=== PATIENT | female | born 1930 | race Caucasian/White ===

== ENCOUNTER 2017-05-10 10:17 | Emergency (ER) | payer MEDICARE, MEDICAID ==
[~2017-05-10] VITALS: Ht 152.4 cm; Wt 58.0 kg
[2017-05-10 10:23] VITALS: BP 181/75; PULSE 72; RESP 16; TEMP 98.3; O2SAT 97
[2017-05-10] MEDS ORDERED: PLAV75TA29 PO (10:44)
[2017-05-10] MEDS ORDERED: METF500T PO (10:44)
[2017-05-10] MEDS ORDERED: LANTUS2P SQ (10:44)
[2017-05-10] MEDS ORDERED: GABA800T PO (10:44)
[2017-05-10] MEDS ORDERED: DORZ2SOL EACH EYE (10:44)
[2017-05-10] MEDS ORDERED: CEPH500C PO (10:44)
[2017-05-10] MEDS ORDERED: TRAM50TA PO (10:44)
[2017-05-10] MEDS ORDERED: LOSA100T3 PO (10:44)
[2017-05-10] MEDS ORDERED: TIZA4 PO (10:44)
[2017-05-10] MEDS ORDERED: LEVO50TA4 PO (10:44)
[2017-05-10] MEDS ORDERED: DULO1CAP2 PO (10:44)
[2017-05-10] MEDS ORDERED: FURO1TAB62 PO (10:44)
[2017-05-10] MEDS ORDERED: CARV3.12 PO (10:44)
[2017-05-10] MEDS ORDERED: ATOR10TA15 PO (10:44)
[2017-05-10] MEDS ORDERED: TRIA0.022 TOPICAL (10:44)
[2017-05-10] MEDS ORDERED: LOPE2CAP PO (10:44)
[2017-05-10] MEDS ORDERED: DONE10TA7 PO (10:44)
[2017-05-10] MEDS ORDERED: SODIUM CHLOR 0.9% 1000 ML INJ 1,000 ML IV SCH (10:55)
[2017-05-10] MEDS ORDERED: SODIUM CHLORIDE 0.9% FLUSH 5 ML FLUSH IV FLUSH PRN (11:00)
[2017-05-10 11:05] VITALS: O2SAT 95
--- NOTE | 2017-05-10 11:16 | PD ---
HPI Chief Complaint: Altered Mental Status Time Seen by Provider: 10:51 Travel History International Travel<30 days: No Contact w/Intl Traveler<30days: No Traveled to known affect area: No History of Present Illness HPI The patient is a 87-year-old female who presents to the emergency department via EMS from the intermediate for altered mental status. The patient is a poor historian, is able to tell me her name, but does not know her current location, month, or year. The patient is able to tell me she lives in the [facility]. The patient does have visible ecchymosis and contusions to the right aspect of her face, review of the patient's paperwork from the intermediate does reveal the patient takes dementia type medications. The patient does complain of mild right sided facial pain and neck pain. She denies any chest pain, shortness breath, nausea, vomiting, or abdominal pain. Symptoms are mild to moderate, possibly exacerbated after a recent fall or trauma. However, history is limited secondary to patient's current mental status. PFSH Past Medical History Cardiovascular Problems: Yes Coronary Artery Disease: Yes Dementia: Yes Diabetes: Yes Patient Takes Glucophage: Yes Hypertension: Yes Past Surgical History Surgical History: Unable to Obtain Social History Alcohol Use: No Tobacco Use: No Substance Use: No Allergies-Medications (Allergen,Severity, Reaction): Coded Allergies: No Known Allergies (Unverified , 05/10/17) Reported Meds & Prescriptions Reported Meds & Active Scripts Active Reported Zanaflex (Tizanidine HCl) 4 Mg Tab 4 Mg PO TID Triamcinolone Topical 0.025 % Oint 1 Applic TOPICAL TID Tramadol (Tramadol HCl) 50 Mg Tab 50 Mg PO Q8H PRN Plavix (Clopidogrel Bisulfate) 75 Mg Tab 75 Mg PO DAILY Metformin (Metformin HCl) 500 Mg Tab 1,000 Mg PO BIDPC Losartan-Hydrochlorothiazide 100-12.5 Mg Tab 1 Tab PO DAILY Loperamide (Loperamide HCl) 2 Mg Cap 2 Mg PO DIRECTED PRN One capsule after each loose stool. Not to exceed 8 capsules per day. Levothyroxine (Levothyroxine Sodium) 50 Mcg Tab 50 Mcg PO DAILY Lasix (Furosemide) 20 Mg Tab 20 Mg PO DAILY Lantus Inj (Insulin Glargine) 1,000 Unit/10 Ml Vial 16 Units SQ AC BREAKFAST Gabapentin 800 Mg Tab 800 Mg PO TID Duloxetine DR (Duloxetine HCl) 30 Mg Capdr 30 Mg PO DAILY Dorzolamide Opth Drops (Dorzolamide HCl) 2% Soln 1 Drop EACH EYE BID Donepezil 10 Mg Tab 10 Mg PO HS Cephalexin 500 Mg Cap 500 Mg PO Q6H Carvedilol 3.125 Mg Tab 3.125 Mg PO BID Atorvastatin (Atorvastatin Calcium) 10 Mg Tab 10 Mg PO HS Review of Systems ROS Limitations: Poor Historian Except as stated in HPI: all other systems reviewed are Neg General / Constitutional: No: Fever HENT: Positive: Headaches, Other (right sided facial pain) Cardiovascular: No: Chest Pain or Discomfort Respiratory: No: Shortness of Breath Gastrointestinal: No: Nausea, Vomiting, Abdominal Pain Genitourinary: No: Dysuria Neurologic: Positive: Change in Mentation (per the intermediate) Physical Exam Narrative GENERAL: Awake, alert, pleasant 87-year-old female who appears her stated age and is in no acute respiratory distress. SKIN: Focused skin assessment warm/dry. HEAD: Patient has ecchymosis and swelling of the right facial area and right periorbital area. EYES: Pupils equal and round. Pupils are 3 mm bilateral and reactive. EOMs are intact. Patient is able to see fingers at a both eyes at a distance of 2 feet. ENT: No nasal bleeding or discharge. Mucous membranes pink and moist. No visible blood noted in the posterior oropharynx. NECK: Trachea midline. No JVD. Mild tenderness of the paravertebral muscles. CARDIOVASCULAR: Regular rate and rhythm. No murmur appreciated. RESPIRATORY: No accessory muscle use. Clear to auscultation. Breath sounds equal bilaterally. GASTROINTESTINAL: Abdomen soft, non-tender, nondistended. No rebound tenderness. Back: No obvious step-off over the thoracic or lumbar vertebrae. MUSCULOSKELETAL: No obvious deformities. No clubbing. No cyanosis. No edema. Well-healed scars over the anterior aspect of the knees bilaterally. NEUROLOGICAL: Awake and alert. No obvious cranial nerve deficits. Motor grossly within normal limits. Normal speech. Oriented to person but not place, month, or year. Follows commands easily. PSYCHIATRIC: Appears somewhat demented. Data Data Last Documented VS Vital Signs Date Time Temp Pulse Resp B/P (MAP) Pulse Ox O2 Delivery O2 Flow Rate FiO2 05/10/17 11:05 95 Room Air 05/10/17 10:23 98.3 72 16 181/75 (110) Orders Orders Electrocardiogram (05/10/17 10:55) Complete Blood Count With Diff (05/10/17 10:55) Comprehensive Metabolic Panel (05/10/17 10:55) Creatine Kinase (Cpk) (05/10/17 10:55) Prothrombin Time / Inr (Pt) (05/10/17 10:55) Act Partial Throm Time (Ptt) (05/10/17 10:55) Troponin I (05/10/17 10:55) Thyroid Stimulating Hormone (05/10/17 10:55) Urinalysis - C+S If Indicated (05/10/17 10:55) Chest, Single Ap (05/10/17 10:55) Ct Brain W/O Iv Contrast(Rout) (05/10/17 10:55) Blood Glucose (05/10/17 10:55) Ecg Monitoring (05/10/17 10:55) Iv Access Insert/Monitor (05/10/17 10:55) Oximetry (05/10/17 10:55) Sodium Chloride 0.9% Flush (Ns Flush) (05/10/17 11:00) Sodium Chlor 0.9% 1000 Ml Inj (Ns 1000 M (05/10/17 10:55) Ct Facial Bones W/O Iv Cont (05/10/17 ) Ct Cerv Spine W/O Contrast (05/10/17 ) Labs Laboratory Tests Test 05/10/17 11:00 05/10/17 11:30 05/10/17 11:55 White Blood Count 7.1 TH/MM3 Red Blood Count 4.91 MIL/MM3 Hemoglobin 14.5 GM/DL Hematocrit 44.5 % Mean Corpuscular Volume 90.6 FL Mean Corpuscular Hemoglobin 29.6 PG Mean Corpuscular Hemoglobin Concent 32.7 % Red Cell Distribution Width 14.9 % Platelet Count 279 TH/MM3 Mean Platelet Volume 9.3 FL Neutrophils (%) (Auto) 71.8 % Lymphocytes (%) (Auto) 18.3 % Monocytes (%) (Auto) 7.1 % Eosinophils (%) (Auto) 1.9 % Basophils (%) (Auto) 0.9 % Neutrophils # (Auto) 5.1 TH/MM3 Lymphocytes # (Auto) 1.3 TH/MM3 Monocytes # (Auto) 0.5 TH/MM3 Eosinophils # (Auto) 0.1 TH/MM3 Basophils # (Auto) 0.1 TH/MM3 CBC Comment AUTO DIFF Differential Comment AUTO DIFF CONFIRMED Prothrombin Time 11.5 SEC Prothromb Time International Ratio 1.0 RATIO Activated Partial Thromboplast Time 26.2 SEC Blood Urea Nitrogen 17 MG/DL Creatinine 0.99 MG/DL Random Glucose 198 MG/DL Total Protein 7.7 GM/DL Albumin 3.1 GM/DL Calcium Level 8.5 MG/DL Alkaline Phosphatase 115 U/L Aspartate Amino Transf (AST/SGOT) 36 U/L Alanine Aminotransferase (ALT/SGPT) 20 U/L Total Bilirubin 0.5 MG/DL Sodium Level 136 MEQ/L Potassium Level 3.2 MEQ/L Chloride Level 93 MEQ/L Carbon Dioxide Level 35.5 MEQ/L Anion Gap 8 MEQ/L Estimat Glomerular Filtration Rate 53 ML/MIN Total Creatine Kinase 66 U/L Troponin I 0.04 NG/ML Thyroid Stimulating Hormone 3rd Gen 0.881 uIU/ML Urine Color YELLOW Urine Turbidity CLEAR Urine pH 6.5 Urine Specific Carnegie 1.019 Urine Protein 30 mg/dL Urine Glucose (UA) TRACE mg/dL Urine Ketones 10 mg/dL Urine Occult Blood NEG Urine Nitrite NEG Urine Bilirubin NEG Urine Urobilinogen 2.0 MG/DL Urine Leukocyte Esterase TRACE Urine RBC 1 /hpf Urine WBC 3 /hpf Urine Squamous Epithelial Cells 2 /hpf Urine Transitional Epithelial Cells <1 /hpf Urine Hyaline Casts 13 /lpf Urine Mucus FEW /lpf Microscopic Urinalysis Comment CATH-CULT NOT IND MDM Medical Decision Making Medical Screen Exam Complete: Yes Emergency Medical Condition: Yes Medical Record Reviewed: Yes Interpretation(s) EKG reveals normal sinus rhythm with a rate of 69. Nonspecific ST and T-wave changes. CT of the brain is negative CT facial bones reveals small retention cyst in the posterior left ethmoid air cell and inferior medially in the left maxillary antra. Otherwise negative. No fracture. Laboratory Tests Test 05/10/17 11:00 05/10/17 11:30 05/10/17 11:55 White Blood Count 7.1 TH/MM3 Red Blood Count 4.91 MIL/MM3 Hemoglobin 14.5 GM/DL Hematocrit 44.5 % Mean Corpuscular Volume 90.6 FL Mean Corpuscular Hemoglobin 29.6 PG Mean Corpuscular Hemoglobin Concent 32.7 % Red Cell Distribution Width 14.9 % Platelet Count 279 TH/MM3 Mean Platelet Volume 9.3 FL Neutrophils (%) (Auto) 71.8 % Lymphocytes (%) (Auto) 18.3 % Monocytes (%) (Auto) 7.1 % Eosinophils (%) (Auto) 1.9 % Basophils (%) (Auto) 0.9 % Neutrophils # (Auto) 5.1 TH/MM3 Lymphocytes # (Auto) 1.3 TH/MM3 Monocytes # (Auto) 0.5 TH/MM3 Eosinophils # (Auto) 0.1 TH/MM3 Basophils # (Auto) 0.1 TH/MM3 CBC Comment AUTO DIFF Differential Comment AUTO DIFF CONFIRMED Prothrombin Time 11.5 SEC Prothromb Time International Ratio 1.0 RATIO Activated Partial Thromboplast Time 26.2 SEC Blood Urea Nitrogen 17 MG/DL Creatinine 0.99 MG/DL Random Glucose 198 MG/DL Total Protein 7.7 GM/DL Albumin 3.1 GM/DL Calcium Level 8.5 MG/DL Alkaline Phosphatase 115 U/L Aspartate Amino Transf (AST/SGOT) 36 U/L Alanine Aminotransferase (ALT/SGPT) 20 U/L Total Bilirubin 0.5 MG/DL Sodium Level 136 MEQ/L Potassium Level 3.2 MEQ/L Chloride Level 93 MEQ/L Carbon Dioxide Level 35.5 MEQ/L Anion Gap 8 MEQ/L Estimat Glomerular Filtration Rate 53 ML/MIN Total Creatine Kinase 66 U/L Troponin I 0.04 NG/ML Thyroid Stimulating Hormone 3rd Gen 0.881 uIU/ML Urine Color YELLOW Urine Turbidity CLEAR Urine pH 6.5 Urine Specific Carnegie 1.019 Urine Protein 30 mg/dL Urine Glucose (UA) TRACE mg/dL Urine Ketones 10 mg/dL Urine Occult Blood NEG Urine Nitrite NEG Urine Bilirubin NEG Urine Urobilinogen 2.0 MG/DL Urine Leukocyte Esterase TRACE Urine RBC 1 /hpf Urine WBC 3 /hpf Urine Squamous Epithelial Cells 2 /hpf Urine Transitional Epithelial Cells <1 /hpf Urine Hyaline Casts 13 /lpf Urine Mucus FEW /lpf Microscopic Urinalysis Comment CATH-CULT NOT IND Last Impressions Head CT 05/10/17 1055 Signed Impressions: Service Date/Time: Wednesday, May 10, 2017 12:33 - CONCLUSION: 1. No acute hemorrhage, mass or infarction. 2. Atrophy and chronic small vessel ischemic changes. Zander Gu MD Chest X-Ray 05/10/17 1055 Signed Impressions: Service Date/Time: Wednesday, May 10, 2017 11:15 - CONCLUSION: No acute cardiopulmonary process. Marvin Martel MD CT cervical spine reveals no fracture or dislocation. Multilevel degenerative changes. Calcified plaque involving the carotid arteries. Calcified granuloma left upper lobe. Differential Diagnosis Differential diagnosis includes intracranial hemorrhage, subarachnoid hemorrhage , subdural hemorrhage, facial fracture, cervical fracture, hyponatremia, dehydration, UTI, delirium, dementia. Narrative Course IV was established, labs are drawn and sent, and the patient was placed on cardiac telemetry monitoring and continuous pulse oximetry monitoring. CT of the brain, facial bones, and cervical spine were ordered. UA was sent to lab. Chest x-ray was obtained. Chest x-rays unremarkable. Laboratory evaluation is unremarkable. CT the brain is unremarkable, no acute hemorrhage. CT the facial bones reveals no fracture. Diagnosis Primary Impression: Altered mental status Qualified Codes: R41.82 - Altered mental status, unspecified Additional Impression: Facial contusion Qualified Codes: S00.83XA - Contusion of other part of head, initial encounter Patient Instructions: General Instructions Additional Instructions: Please provide the intermediate a copy of her lab results and CT results at discharge. Ice to the right face as needed. Follow-up with your primary physician. Return if symptoms worsen or progress. Disposition: 70 TRANSFER TO OTHER FACILITY (transfer back to intermediate) Condition: Stable Cesar Calderon MD May 10, 2017 11:16
[2017-05-10 11:41] LABS: AUTOMATED NEUTROPHIL # 5.1 TH/MM3 (1.8-7.7); BASOPHIL # 0.1 TH/MM3 (0-0.2); BASOPHIL % 0.9 % (0.0-2.0); EOSINOPHIL # 0.1 TH/MM3 (0-0.4); EOSINOPHIL % 1.9 % (0.0-4.0); HEMATOCRIT 44.5 % (35.0-46.0); HEMOGLOBIN 14.5 GM/DL (11.6-15.3); LYMPH % 18.3 % (9.0-44.0); LYMPHOCYTE # 1.3 TH/MM3 (1.0-4.8); MEAN CELL VOLUME 90.6 FL (80.0-100.0); MEAN CORPUSCULAR HEMOGLOBIN 29.6 PG (27.0-34.0); MEAN CORPUSCULAR HGB CONC 32.7 % (32.0-36.0); MEAN PLATELET VOLUME 9.3 FL (7.0-11.0); MONO % 7.1 % (0.0-8.0); MONOCYTE # 0.5 TH/MM3 (0-0.9); NEUT % 71.8 % (16.0-70.0); PLATELET COUNT 279 TH/MM3 (150-450); RED BLOOD COUNT 4.91 MIL/MM3 (4.00-5.30); RED CELL DISTRIBUTION WIDTH 14.9 % (11.6-17.2); WHITE BLOOD COUNT 7.1 TH/MM3 (4.0-11.0)
--- NOTE | 2017-05-10 11:44 | RADRPT ---
EXAM DATE/TIME: 05/10/2017 11:15 [facility] COMPARISON: No previous studies available for comparison. INDICATIONS : Shortness of breath. MEDICAL HISTORY : Hypertension. Diabetes mellitus type II. Coronary artery disease SURGICAL HISTORY : CABG. ENCOUNTER: Initial ACUITY: 1 day PAIN SCORE: Non-responsive. LOCATION: Bilateral chest FINDINGS: A single view of the chest demonstrates the lungs to be symmetrically aerated without evidence of mas s, infiltrate or effusion. The cardiomediastinal contours are unremarkable. Calcific densities proj ecting over the upper lobes may be related to regional vasculature. Degenerative spurring in the a.c. joints bilaterally. Osseous structures are otherwise intact. Intact median sternotomy wires. CONCLUSION: No acute cardiopulmonary process. Marvin Martel MD on May 10, 2017 at 11:40 Board Certified Radiologist. This report was verified electronically.
[2017-05-10 12:06] LABS: PROTHROMBIN TIME - PATIENT 11.5 SEC (9.8-11.6)
[2017-05-10 12:17] LABS: BILIRUBIN, URINE NEG (NEG); BLOOD, URINE NEG (NEG); GLUCOSE,URINE TRACE mg/dL (NEG); HYALINE CAST, URINE 13 /lpf (RARE); KETONE, URINE 10 mg/dL (NEG); MUCUS URINE FEW /lpf (OCC); NITRITE,URINE NEG (NEG); PH, URINE 6.5 (5.0-8.5); SQUAMOUS EPITHELIAL CELL URINE 2 /hpf (0-5); TRANSITIONAL EPI CELLS, URINE <1 /hpf; URINE COLOR YELLOW (YELLW/STRAW); URINE LEUKOCYTE ESTERASE TRACE (NEG)
[2017-05-10 12:23] LABS: ALBUMIN 3.1 GM/DL (3.4-5.0); ALT (GPT) 20 U/L (10-53); AST (GOT) 36 U/L (15-37); BICARBONATE 35.5 MEQ/L (21.0-32.0); BLOOD UREA NITROGEN 17 MG/DL (7-18); CALCIUM 8.5 MG/DL (8.5-10.1); CHLORIDE 93 MEQ/L (98-107); CREATININE 0.99 MG/DL (0.50-1.00); GLOMERULAR FILTRATION RATE 53 ML/MIN (>89); GLUCOSE,RANDOM 198 MG/DL (74-106); SODIUM (NA) 136 MEQ/L (136-145)
[2017-05-10 12:33] LABS: ALKALINE PHOSPHATASE 115 U/L (45-117); TOTAL BILIRUBIN ADULT 0.5 MG/DL (0.2-1.0); TOTAL PROTEIN 7.7 GM/DL (6.4-8.2); TROPONIN I 0.04 NG/ML (0.02-0.05)
--- NOTE | 2017-05-10 12:57 | RADRPT ---
EXAM DATE/TIME: 05/10/2017 12:33 [facility] COMPARISON: No previous studies available for comparison. INDICATIONS : Trauma, fall. RADIATION DOSE: 56.35 CTDIvol (mGy) MEDICAL HISTORY : Dementia. Cardiovascular disease Hypertension. SURGICAL HISTORY : None. ENCOUNTER: Initial ACUITY: 1 day PAIN SCALE: 5/10 LOCATION: cranial TECHNIQUE: Multiple contiguous axial images were obtained of the head. Using automated exposure control and adj ustment of the mA and/or kV according to patient size, radiation dose was kept as low as reasonably a chievable to obtain optimal diagnostic quality images. DICOM format image data is available electro nically for review and comparison. FINDINGS: CEREBRUM: The ventricles are normal for age with moderate atrophic change with sulcal and ventricular prominenc e. Chronic small vessel ischemic changes are again noted. No evidence of midline shift, mass lesion, hemorrhage or acute infarction. No extra-axial fluid collections are seen. POSTERIOR FOSSA: The cerebellum and brainstem are intact. The 4th ventricle is midline. The cerebellopontine angle i s unremarkable. EXTRACRANIAL: The visualized portion of the orbits is intact. SKULL: The calvaria is intact. No evidence of skull fracture. CONCLUSION: 1. No acute hemorrhage, mass or infarction. 2. Atrophy and chronic small vessel ischemic changes. Zander Gu MD on May 10, 2017 at 12:55 Board Certified Radiologist. This report was verified electronically.
--- NOTE | 2017-05-10 13:23 | RADRPT ---
EXAM DATE/TIME: 05/10/2017 12:33 [facility] COMPARISON: No previous studies available for comparison. INDICATIONS : Trauma, fall. Right sided facial pain. RADIATION DOSE: 24.18 CTDIvol (mGy) MEDICAL HISTORY : Dementia. Cardiovascular disease Hypertension.Diabetes SURGICAL HISTORY : None. ENCOUNTER: Initial ACUITY: 1 day PAIN SCORE: 4/10 LOCATION: facial TECHNIQUE: Volumetric scanning of the facial bones was performed. Using automated exposure control and adjustme nt of the mA and/or kV according to patient size, radiation dose was kept as low as reasonably achiev able to obtain optimal diagnostic quality images. DICOM format image data is available electronicall y for review and comparison. FINDINGS: ORBITS: The orbital and infraorbital osseous structures are intact. The retroconal structures have a normal configuration. No radiopaque foreign bodies are seen. NASAL BONE: The nasal bone and maxillary spine are intact ZYGOMATIC ARCHES: Symmetric without evidence of fracture. SINUSES: The maxillary, ethmoid and frontal sinuses are intact. No air-fluid levels seen. Small ret ention cyst in the posterior left ethmoid air cell as well as the inferomedial aspect of the lef t maxillary sinus. NASAL CAVITY: The nasal septum is intact and midline. The lacrimal ducts are intact. SOFT TISSUES: No radiopaque foreign bodies seen. No soft-tissue swelling is seen. INTRACRANIAL: No intracranial air seen. CRIBIFORM PLATE: Grossly intact. CONCLUSION: 1. Small retention cyst in the posterior left ethmoid air cell and inferomedially in the left maxilla ry antra. 2. Otherwise negative. No fracture. Marvin Martel MD on May 10, 2017 at 13:14 Board Certified Radiologist. This report was verified electronically.
--- NOTE | 2017-05-10 13:32 | RADRPT ---
EXAM DATE/TIME: 05/10/2017 12:33 [facility] COMPARISON: No previous studies available for comparison. INDICATIONS : Trauma, fall. Neck pain. RADIATION DOSE: 24.85 CTDIvol (mGy) MEDICAL HISTORY : Dementia. Cardiovascular disease Hypertension.Diabetes. SURGICAL HISTORY : None. ENCOUNTER: Initial ACUITY: 1 day PAIN SCALE: 4/10 LOCATION: neck TECHNIQUE: Volumetric scanning of the cervical spine was performed. Multiplanar reconstructions in the sagittal, coronal and oblique axial planes were performed. Using automated exposure control and adjustment o f the mA and/or kV according to patient size, radiation dose was kept as low as reasonably achievable to obtain optimal diagnostic quality images. DICOM format image data is available electronically f or review and comparison. FINDINGS: VERTEBRAE: Normal vertebral body height. ALIGNMENT: No evidence of subluxation. C2-C3: The bony spinal canal is normal in size. No evidence of disc bulge or herniation. The neural forami na are bilaterally patent. C3-C4: There is a mild broad-based disc osteophyte complex. No central canal stenosis. Neural foramina are p atent bilaterally. C4-C5: There is a broad-based disc osteophyte complex with mild flattening of the ventral portion of the cor d. Bony uncovertebral hypertrophy bilaterally. Mild bilateral lateral recess and neural foraminal coty rowing. This is more pronounced on the left. C5-C6: There is a broad-based disc osteophyte complex with mild flattening of the ventral portion of the cor d. Bony uncovertebral hypertrophy bilaterally. Mild bilateral lateral recess and neural foraminal coty rowing. C6-C7: There is disc space narrowing with a broad-based disc osteophyte complex eccentric to the left. Bony uncovertebral hypertrophy. Abutment of the ventral portion of the cord more pronounced to the left of midline. Bilateral neural foraminal narrowing. This more pronounced on the left. C7-T1: The bony spinal canal is normal in size. No evidence of disc bulge or herniation. The neural forami na are bilaterally patent. CONCLUSION: 1. No fracture or dislocation. 2. Multilevel degenerative changes. 3. Calcified plaque involving the carotid arteries. 4. Calcified granuloma left upper lobe. Salas Almaraz Jr., MD on May 10, 2017 at 13:25 Board Certified Radiologist. This report was verified electronically.
[2017-05-10] MEDS ORDERED: POTASSIUM CHLORIDE 20 MEQ CONTROLLED RELEASE TAB PO ONE (14:15)
--- NOTE | 2017-05-10 19:00 | EKG ---
Date Performed: 05/10/2017 Time Performed: 10:38:34 PTAGE: 87 years EKG: Sinus rhythm NONSPECIFIC ST & T-WAVE ABNORMALITY BORDERLINE ECG NO PREVIOUS TRACING DOCTOR: Chepe Garcia Interpretating Date/Time 05/10/2017 18:59:55
== END 2017-05-10 14:43 | disposition short-term general hospital (02) ==
LOC: NEPC 10:17
DX: R41.82 Altered mental status, unspecified (principal); F03.90 Unspecified dementia, unspecified severity, without behavioral disturbance, psychotic disturbance, mood disturbance, and anxiety; S00.83XA Contusion of other part of head, initial encounter; X58.XXXA Exposure to other specified factors, initial encounter; Y92.129 Unspecified place in nursing home as the place of occurrence of the external cause; I25.10 Atherosclerotic heart disease of native coronary artery without angina pectoris; I10 Essential (primary) hypertension; E11.9 Type 2 diabetes mellitus without complications
CPT/HCPCS: 70450; 70486; 71010; 72125; 80053; 81001; 82550; 84443; 84484; 85025; 85610; 85730; 93005; 96360; 99285; J7030

== ENCOUNTER 2017-05-13 13:46 | Observation (INO) | payer MEDICARE, OTHER ==
[~2017-05-13] VITALS: Ht 154.9 cm; Wt 58.0 kg
[~2017-05-13 13:46] MED LIST: ATOR10TA15 PO; CARV3.12 PO; CEPH500C PO; DONE10TA7 PO; DORZ2SOL EACH EYE; DULO1CAP2 PO; FURO1TAB62 PO; GABA800T PO; LANTUS2P SQ; LEVO50TA4 PO; LOPE2CAP PO; LOSA100T3 PO; METF500T PO; PLAV75TA29 PO; TIZA4 PO; TRAM50TA PO; TRIA0.022 TOPICAL
[2017-05-13 13:56] VITALS: BP 102/51; PULSE 89; RESP 16; TEMP 98; O2SAT 97
[2017-05-13 14:13] VITALS: O2SAT 97
[2017-05-13] MEDS ORDERED: SODIUM CHLORID 0.9% 500 ML INJ 500 ML IV ONE (14:15)
--- NOTE | 2017-05-13 14:49 | RADRPT ---
EXAM DATE/TIME: 05/13/2017 14:48 [facility] COMPARISON: CHEST SINGLE AP, May 10, 2017, 11:15. INDICATIONS : Per RN patient fell. MEDICAL HISTORY : None. SURGICAL HISTORY : CABG. ENCOUNTER: Initial ACUITY: 1 day PAIN SCORE: Non-responsive. LOCATION: Bilateral chest FINDINGS: Sternal wires are noted. Upper most wire is fractured. The lungs are clear. The heart is minimally enlarged. The vascularity is normal. Degenerative changes are present about both shoulders. CONCLUSION: Negative for an acute process. I don't see fracture. Uppermost sternal wire is fractured. Byron Muro MD FACR on May 13, 2017 at 14:46 Board Certified Radiologist. This report was verified electronically.
--- NOTE | 2017-05-13 15:04 | PD ---
HPI Chief Complaint: Fall Time Seen by Provider: 14:04 Travel History International Travel<30 days: No Contact w/Intl Traveler<30days: No Traveled to known affect area: No History of Present Illness HPI This is a 87-year-old female who comes from the memory unit of a senior living for evaluation of head and low back pain after mechanical fall. The patient was here several days ago for similar. The patient is able to state she has had pain and low back pain. There are no other reported injuries. Paramedics report that her blood pressure was in the 80s systolic. The patient is unable to give a clear review of systems secondary to her chronic medical/mental history. PFSH Past Medical History Cardiovascular Problems: Yes Coronary Artery Disease: Yes Dementia: Yes Diabetes: Yes Patient Takes Glucophage: Yes Diminished Hearing: No Hypertension: Yes Social History Alcohol Use: No Tobacco Use: No Substance Use: No Allergies-Medications (Allergen,Severity, Reaction): Coded Allergies: No Known Allergies (Unverified Allergy, Unknown, 05/13/17) Reported Meds & Prescriptions Reported Meds & Active Scripts Active Reported Tylenol Extra Strength (Acetaminophen) 500 Mg Tablet 1,000 Mg PO Q4HR PRN Meclizine (Meclizine HCl) 25 Mg Tab 25 Mg PO Q8HR PRN Zanaflex (Tizanidine HCl) 4 Mg Tab 4 Mg PO TID Triamcinolone Topical 0.025 % Oint 1 Applic TOPICAL TID Tramadol (Tramadol HCl) 50 Mg Tab 50 Mg PO Q8H PRN Plavix (Clopidogrel Bisulfate) 75 Mg Tab 75 Mg PO DAILY Metformin (Metformin HCl) 500 Mg Tab 1,000 Mg PO BIDPC Losartan-Hydrochlorothiazide 100-12.5 Mg Tab 1 Tab PO DAILY Loperamide (Loperamide HCl) 2 Mg Cap 2 Mg PO DIRECTED PRN One capsule after each loose stool. Not to exceed 8 capsules per day. Levothyroxine (Levothyroxine Sodium) 50 Mcg Tab 50 Mcg PO DAILY Lasix (Furosemide) 20 Mg Tab 20 Mg PO DAILY Lantus Inj (Insulin Glargine) 1,000 Unit/10 Ml Vial 16 Units SQ AC BREAKFAST Gabapentin 800 Mg Tab 800 Mg PO TID Duloxetine DR (Duloxetine HCl) 30 Mg Capdr 30 Mg PO BID Dorzolamide Opth Drops (Dorzolamide HCl) 2% Soln 1 Drop EACH EYE BID Donepezil 10 Mg Tab 10 Mg PO HS Cephalexin 500 Mg Cap 500 Mg PO Q6H Carvedilol 3.125 Mg Tab 3.125 Mg PO BID Atorvastatin (Atorvastatin Calcium) 10 Mg Tab 10 Mg PO HS Review of Systems Except as stated in HPI: all other systems reviewed are Neg (patient extremely poor historian secondary to her poor memory.) HENT: Positive: Headaches, No: Neck Pain Cardiovascular: No: Chest Pain or Discomfort, Palpitations Respiratory: No: Cough Gastrointestinal: No: Nausea, Vomiting Genitourinary: No: Incontinence Musculoskeletal: Positive: Pain (lower lumbar back), No: Weakness Neurologic: Positive: Headache, No: Weakness Physical Exam Narrative GENERAL: Well-developed well-nourished female in no acute respiratory distress. The patient is in C-spine backboard immobilization. SKIN: Focused skin assessment warm/dry. HEAD: Normocephalic. The patient has bilateral periorbital hematomas. Right greater than left. These appear old. EYES: No scleral icterus. No injection or drainage. ENT: No nasal bleeding or discharge. Mucous membranes pink and moist. NECK: Trachea midline. C-collar immobilization. CARDIOVASCULAR: Regular rate and rhythm. No murmur appreciated.Developed well- nourished GASTROINTESTINAL: Abdomen soft, non-tender, nondistended. BACK: Tenderness to palpation in the lower lumbar spine. No spinous process deformity or step-offs. MUSCULOSKELETAL: No obvious deformities. No clubbing. No cyanosis. No edema. NEUROLOGICAL: Awake and confused. No obvious cranial nerve deficits. Motor grossly within normal limits. Normal speech. Data Data Last Documented VS Vital Signs Date Time Temp Pulse Resp B/P (MAP) Pulse Ox O2 Delivery O2 Flow Rate FiO2 05/13/17 16:00 58 19 165/71 (102) 100 Room Air 05/13/17 13:[address] Brain W/O Iv Contrast(Rout) (05/13/17 14:04) Ct Cerv Spine W/O Contrast (05/13/17 14:04) Ct Lumb Spine W/O Contrast (05/13/17 14:04) Complete Blood Count With Diff (05/13/17 14:04) Comprehensive Metabolic Panel (05/13/17 14:04) Urinalysis - C+S If Indicated (05/13/17 14:04) Chest, Single Ap (05/13/17 14:04) Pelvis, Ap Only (Routine) (05/13/17 14:04) Iv Access Insert/Monitor (05/13/17 14:04) Ecg Monitoring (05/13/17 14:04) Oximetry (05/13/17 14:04) Sodium Chlorid 0.9% 500 Ml Inj (Ns 500 M (05/13/17 14:15) Vascular Access Team Consult/P PRN (05/13/17 14:53) Vascular Poc Ultrasound (05/13/17 ) Electrocardiogram (05/13/17 14:29) Place In Observation (05/13/17 ) Vital Signs (Adult) Q4H (05/13/17 16:46) Activity Oob With Assistance (05/13/17 16:46) Diet Heart Healthy (05/13/17 Dinner) Sodium Chlor 0.9% 1000 Ml Inj (Ns 1000 M (05/13/17 17:00) Sodium Chloride 0.9% Flush (Ns Flush) (05/13/17 17:00) Sodium Chloride 0.9% Flush (Ns Flush) (05/13/17 21:00) Acetaminophen (Tylenol) (05/13/17 17:00) Ondansetron Inj (Zofran Inj) (05/13/17 17:00) Basic Metabolic Panel (Bmp) (05/14/17 06:00) Complete Blood Count With Diff (05/14/17 06:00) Pt Request For Service (05/13/17 16:46) Scd Bilateral/Knee High KELSEY.BID (05/13/17 16:46) Naloxone Inj (Narcan Inj) (05/13/17 17:00) Magnesium Hydroxide Liq (Milk Of Magnesi (05/13/17 17:00) Sennosides (Senokot) (05/13/17 17:00) Bisacodyl Supp (Dulcolax Supp) (05/13/17 17:00) Lactulose Liq (Lactulose Liq) (05/13/17 17:00) Admit Order (Ed Use Only) (05/13/17 17:04) Labs Laboratory Tests Test 05/13/17 15:50 White Blood Count 8.8 TH/MM3 Red Blood Count 4.08 MIL/MM3 Hemoglobin 12.2 GM/DL Hematocrit 37.2 % Mean Corpuscular Volume 91.2 FL Mean Corpuscular Hemoglobin 29.8 PG Mean Corpuscular Hemoglobin Concent 32.7 % Red Cell Distribution Width 14.7 % Platelet Count 224 TH/MM3 Mean Platelet Volume 9.5 FL Neutrophils (%) (Auto) 60.0 % Lymphocytes (%) (Auto) 26.4 % Monocytes (%) (Auto) 8.3 % Eosinophils (%) (Auto) 4.5 % Basophils (%) (Auto) 0.8 % Neutrophils # (Auto) 5.3 TH/MM3 Lymphocytes # (Auto) 2.3 TH/MM3 Monocytes # (Auto) 0.7 TH/MM3 Eosinophils # (Auto) 0.4 TH/MM3 Basophils # (Auto) 0.1 TH/MM3 CBC Comment DIFF FINAL Differential Comment Urine Color YELLOW Urine Turbidity CLEAR Urine pH 5.0 Urine Specific [place] 1.017 Urine Protein NEG mg/dL Urine Glucose (UA) NEG mg/dL Urine Ketones NEG mg/dL Urine Occult Blood NEG Urine Nitrite NEG Urine Bilirubin NEG Urine Urobilinogen 2.0 MG/DL Urine Leukocyte Esterase NEG Urine RBC LESS THAN 1 /hpf Urine WBC LESS THAN 1 /hpf Urine Squamous Epithelial Cells <1 /hpf Urine Amorphous Sediment RARE Urine Hyaline Casts 11 /lpf Urine Mucus FEW /lpf Microscopic Urinalysis Comment CULT NOT INDICATED Blood Urea Nitrogen 20 MG/DL Creatinine 1.28 MG/DL Random Glucose 217 MG/DL Total Protein 7.5 GM/DL Albumin 3.1 GM/DL Calcium Level 8.6 MG/DL Alkaline Phosphatase 132 U/L Aspartate Amino Transf (AST/SGOT) 30 U/L Alanine Aminotransferase (ALT/SGPT) 23 U/L Total Bilirubin 0.3 MG/DL Sodium Level 136 MEQ/L Potassium Level 3.5 MEQ/L Chloride Level 95 MEQ/L Carbon Dioxide Level 33.9 MEQ/L Anion Gap 7 MEQ/L Estimat Glomerular Filtration Rate 39 ML/MIN [facility] Medical Decision Making Medical Screen Exam Complete: Yes Emergency Medical Condition: Yes Differential Diagnosis Intracranial injury versus cervical spine injury versus lumbar spine injury versus metabolic derangement Narrative Course 87-year-old female from the memory unit at [facility], presents here with complaints of head pain and low back pain. The patient had a mechanical fall. She was seen here 3 days ago for the same thing. The patient is noted to be dehydrated here. She is also noted to be hyperglycemic. There was question of V. tach on the monitor earlier. The patient has no V. tach at this time. EKG shows no evidence of acute ST elevations or depressions. She'll be admitted under observation for rehydration. She'll need a case management consult as I do not believe the [facility] is capable of taking care of her given the multiple falls. [facility] Diagnosis Primary Impression: Blunt head trauma Additional Impressions: Lumbar contusion Dehydration Hyperglycemia Admitting Information Admitting Physician Requests: Observation Jhoan Davies MD May 13, 2017 15:03
--- NOTE | 2017-05-13 15:10 | RADRPT ---
EXAM DATE/TIME: 05/13/2017 14:37 [facility] COMPARISON: CT BRAIN W/O CONTRAST, May 10, 2017, 12:33. INDICATIONS : FALL RADIATION DOSE: 69.15 CTDIvol (mGy) MEDICAL HISTORY : Cardiovascular disease. Hypertension. Cerebrovascular disease.Diabete SURGICAL HISTORY : None. ENCOUNTER: Initial ACUITY: 1 day PAIN SCALE: 8/10 LOCATION: cranial TECHNIQUE: Multiple contiguous axial images were obtained of the head. Using automated exposure control and adjustment of the mA and/or kV according to patient size, radiation dose was kept as low as reasonably achievable to obtain optimal diagnostic quality images. DICOM format image data is av ailable electronically for review and comparison. FINDINGS: CEREBRUM: The ventricles are normal for age. No evidence of midline shift, mass lesion, hemorrha ge or acute infarction. No extra-axial fluid collections are seen. POSTERIOR FOSSA: The cerebellum and brainstem are intact. The 4th ventricle is midline. The cer ebellopontine angle is unremarkable. EXTRACRANIAL: The visualized portion of the orbits is intact. SKULL: The calvaria is intact. No evidence of skull fracture. CONCLUSION: Negative for an acute process. Byron Muro MD FACR on May 13, 2017 at 15:08 Board Certified Radiologist. This report was verified electronically.
--- NOTE | 2017-05-13 15:20 | RADRPT ---
EXAM DATE/TIME: 05/13/2017 14:41 [facility] COMPARISON: CT CERVICAL SPINE W/O CONTRAST, May 10, 2017, 12:33. INDICATIONS : Fall RADIATION DOSE: 23.16 CTDIvol (mGy) MEDICAL HISTORY : Cardiovascular disease. Hypertension. Cerebrovascular disease.Diabetes SURGICAL HISTORY : None. ENCOUNTER: Initial ACUITY: 1 day PAIN SCALE: 8/10 LOCATION: neck TECHNIQUE: Volumetric scanning of the cervical spine was performed. Multiplanar reconstructions in the sagittal, coronal and oblique axial planes were performed. Using automated exposure control and adjustment o f the mA and/or kV according to patient size, radiation dose was kept as low as reasonably achievable to obtain optimal diagnostic quality images. DICOM format image data is available electronically f or review and comparison. FINDINGS: There has been no interval change from the CT scan from 2716 that showed multilevel degenerative c hanges without fracture or dislocation. Moderate calcific plaque was seen in both carotid arteries. CONCLUSION: Negative for fracture dislocation. No interval change from 05/10/17. Byron Muro MD FACR on May 13, 2017 at 15:16 Board Certified Radiologist. This report was verified electronically.
--- NOTE | 2017-05-13 15:21 | RADRPT ---
EXAM DATE/TIME: 05/13/2017 14:49 [facility] COMPARISON: No previous studies available for comparison. INDICATIONS : Per RN patient fell today. MEDICAL HISTORY : None. SURGICAL HISTORY : None. ENCOUNTER: Initial ACUITY: 1 day PAIN SCORE: Non-responsive. LOCATION: Bilateral Pelvic FINDINGS: There are degenerative changes about both hips. Alignment anatomic. Fracture is not appreciated. O steopenia makes detection of nondisplaced fractures difficult. CONCLUSION: Negative for fracture or dislocation. Follow up in 7-10 days is suggested if symptoms persist. Byron Muro MD FACR on May 13, 2017 at 15:19 Board Certified Radiologist. This report was verified electronically.
[2017-05-13] MEDS ORDERED: ACET-822 PO (15:57)
[2017-05-13] MEDS ORDERED: MECL-62 PO (15:57)
[2017-05-13 16:00] VITALS: BP 165/71; PULSE 58; RESP 19; O2SAT 100
--- NOTE | 2017-05-13 16:04 | RADRPT ---
EXAM DATE/TIME: 05/13/2017 14:44 [facility] COMPARISON: No previous studies available for comparison. INDICATIONS : Fall RADIATION DOSE: 35.81 CTDIvol (mGy) MEDICAL HISTORY : Cerebrovascular disease. Cardiovascular disease. Hypertension. Diabetes SURGICAL HISTORY : None. ENCOUNTER: Initial ACUITY: 1 day PAIN SCALE: 8/10 LOCATION: Lumbar TECHNIQUE: Volumetric scanning of the lumbar spine was performed. Multiplanar reconstructions in the sagittal, coronal and oblique axial planes were performed. Using automated exposure control and adjustment of the mA and/or kV according to patient size, radiation dose was kept as low as reasonably achievable t o obtain optimal diagnostic quality images. DICOM format image data is available electronically for review and comparison. FINDINGS: The sagittal images demonstrate Grade I anterolisthesis of L4 in relation to L5. There is no acute c ompression fracture or spondylolysis. Vacuum disc phenomenon is noted at L3-4 and L4-5. Diffuse disc osteophyte complexes are noted at L2-3, L3-4, L4-5 and L5-S1. Multilevel spinal stenoses are noted a nd will be described in detail. Mild scoliosis of the lumbar spine is noted. T12-L1: There is minimal diffuse disc osteophyte complex which results in no spinal stenosis or neural forami nal narrowing. No focal disc herniation is noted. L1-L2: There is minimal diffuse disc bulge which results in no spinal stenosis or neural foraminal narrowing . No focal disc herniation is noted. The facet joints and ligaments are unremarkable. L2-L3: There is a mild diffuse disc osteophyte complex as well as facet joint hypertrophy and ligamentous la xity bilaterally resulting in mild spinal stenosis and bilateral foraminal narrowing. No focal disc herniation is noted. L3-L4: There is mild diffuse disc osteophyte complex as well as facet joint hypertrophy and ligamentous laxi ty resulting in mild to moderate spinal stenosis and moderate bilateral foraminal narrowing. No foca l disc herniation is noted. L4-L5: There is diffuse disc osteophyte complex, Grade I anterolisthesis of L4 in relation to L5, facet join t hypertrophy and ligamentous laxity resulting in moderate spinal stenosis and severe bilateral leia inal narrowing. No focal disc herniation is noted. L5-S1: There is diffuse disc osteophyte complex and facet joint hypertrophy bilaterally resulting in mild sp inal stenosis and moderate bilateral foraminal narrowing. No focal disc herniation is noted. MISCELLANEOUS: There is a left adrenal nodule measuring 2.8 x 1.4 cm which appears to contain some fat raising the p ossibility of myelolipoma. A right renal cyst is also noted and measures 2 cm. CONCLUSION: 1. Moderate spinal stenosis and severe bilateral foraminal narrowing at L4-5. 2. Mild to moderate spinal stenosis and moderate bilateral foraminal narrowing at L3-4. 3. Mild spinal stenosis and moderate bilateral foraminal narrowing at L5-S1. 4. Mild spinal stenosis and bilateral foraminal narrowing at L2-3. 5. No acute fracture or spondylolysis. 6. Grade I anterolisthesis of L4 in relation to L5. 7. Diffuse degenerative changes and mild scoliosis of the lumbar spine. 8. 2.8 x 1.4 cm fat-containing left adrenal nodule consistent with possible myelolipoma. 9. 2 cm right renal cyst. Garett Roe MD on May 13, 2017 at 15:30 Board Certified Radiologist. This report was verified electronically.
[2017-05-13 16:09] LABS: BLOOD, URINE NEG (NEG); COMMENT (UR) CULT NOT INDICATED; CULTURE IF INDICATED CULT NOT INDICATED; GLUCOSE,URINE NEG (NEG); HYALINE CAST, URINE 11 /lpf (RARE); KETONE, URINE NEG (NEG); MUCUS URINE FEW /lpf (OCC); NITRITE,URINE NEG (NEG); SQUAMOUS EPITHELIAL CELL URINE <1 /hpf (0-5); URINE COLOR YELLOW (YELLW/STRAW)
[2017-05-13 16:10] LABS: AUTOMATED NEUTROPHIL # 5.3 TH/MM3 (1.8-7.7); BASOPHIL # 0.1 TH/MM3 (0-0.2); BASOPHIL % 0.8 % (0.0-2.0); EOSINOPHIL # 0.4 TH/MM3 (0-0.4); EOSINOPHIL % 4.5 % (0.0-4.0); HEMATOCRIT 37.2 % (35.0-46.0); HEMO FLAGS DIFF FINAL; LYMPH % 26.4 % (9.0-44.0); LYMPHOCYTE # 2.3 TH/MM3 (1.0-4.8); MEAN CELL VOLUME 91.2 FL (80.0-100.0); MEAN CORPUSCULAR HEMOGLOBIN 29.8 PG (27.0-34.0); MEAN CORPUSCULAR HGB CONC 32.7 % (32.0-36.0); MONO % 8.3 % (0.0-8.0); PLATELET COUNT 224 TH/MM3 (150-450); RED BLOOD COUNT 4.08 MIL/MM3 (4.00-5.30); RED CELL DISTRIBUTION WIDTH 14.7 % (11.6-17.2); WHITE BLOOD COUNT 8.8 TH/MM3 (4.0-11.0)
[2017-05-13 16:23] LABS: ALT (GPT) 23 U/L (10-53); ANION GAP 7 MEQ/L (5-15); AST (GOT) 30 U/L (15-37); BICARBONATE 33.9 MEQ/L (21.0-32.0); BLOOD UREA NITROGEN 20 MG/DL (7-18); CHLORIDE 95 MEQ/L (98-107); GLOMERULAR FILTRATION RATE 39 ML/MIN (>89); POTASSIUM 3.5 MEQ/L (3.5-5.1); SODIUM (NA) 136 MEQ/L (136-145)
[2017-05-13 16:25] LABS: ALKALINE PHOSPHATASE 132 U/L (45-117); TOTAL BILIRUBIN ADULT 0.3 MG/DL (0.2-1.0)
[2017-05-13 17:00] VITALS: BP 174/82; PULSE 58; RESP 21; O2SAT 98
[2017-05-13] MEDS ORDERED: BISACODYL 10 MG SUPP RECTAL PRN (17:00)
[2017-05-13] MEDS ORDERED: SENNOSIDES 8.6 MG TAB PO PRN (17:00)
[2017-05-13] MEDS ORDERED: ACETAMINOPHEN 325 MG TAB PO PRN (17:00)
[2017-05-13] MEDS ORDERED: LACTULOSE SYRUP 20 GM/30 ML CUP PO PRN (17:00)
[2017-05-13] MEDS ORDERED: SODIUM CHLORIDE 0.9% FLUSH 10 ML FLUSH IV FLUSH PRN (17:00)
[2017-05-13] MEDS ORDERED: MAGNESIUM HYDROXIDE SUSP 30 ML CUP PO PRN (17:00)
[2017-05-13] MEDS ORDERED: ONDANSETRON HCL 4 MG/2 ML VIAL IVP PRN (17:00)
[2017-05-13] MEDS ORDERED: NALOXONE HCL 0.4 MG/ML AMP IV PUSH PRN (17:00)
[2017-05-13] MEDS: SODIUM CHLOR 0.9% 1000 ML INJ 1,000 ML IV SCH (17:43)
[2017-05-13 18:00] VITALS: BP 168/75; PULSE 58; RESP 15; O2SAT 96
[2017-05-13 19:43] VITALS: BP 153/66; PULSE 61; RESP 18; TEMP 97.7; O2SAT 95
[2017-05-13] MEDS: SODIUM CHLORIDE 0.9% FLUSH 10 ML FLUSH IV FLUSH SCH (21:00)
[2017-05-14] VITALS (7 sets, daily range): BP systolic 133–194; BP diastolic 65–82; PULSE 63–90; RESP 16–19; TEMP 98–98.5; O2SAT 94–98
[2017-05-14] MEDS: SODIUM CHLOR 0.9% 1000 ML INJ 1,000 ML IV SCH ×3 (02:24→23:00)
--- NOTE | 2017-05-14 02:55 | HHI.HP ---
[facility] Service [facility] Primary Care Physician Unknown Admission Diagnosis mechanical fall, dehydration, questionable arrythmia Diagnoses: Chief Complaint: fall Travel History International Travel<30 Days: No Contact w/Intl Traveler <30 Da: No Traveled to Known Affected Are: No History of Present Illness 87 y/o female with a history of dementia and HTn presented to the ED after a fall at the nursing facility. She is only oriented to self. Ros and history taken is limited. Patient states yes periodically to question but can not elaborated. Per RN she has been scratching on her chest and abdomen a lot and patient confirms this. She says she is scratching but denies itching. Nursing reports that patient has transferred without much difficulty. Review of Systems Attempted but patient unable to provide meaningful answers. Past Family Social History Past Medical History Dementia Hypertension CAD Diabetes. Past Surgical History Bilateral knee replacement Reported Medications Reported Meds & Active Scripts Active Reported Tylenol Extra Strength (Acetaminophen) 500 Mg Tablet 1,000 Mg PO Q4HR PRN Meclizine (Meclizine HCl) 25 Mg Tab 25 Mg PO Q8HR PRN Zanaflex (Tizanidine HCl) 4 Mg Tab 4 Mg PO TID Triamcinolone Topical 0.025 % Oint 1 Applic TOPICAL TID Tramadol (Tramadol HCl) 50 Mg Tab 50 Mg PO Q8H PRN Plavix (Clopidogrel Bisulfate) 75 Mg Tab 75 Mg PO DAILY Metformin (Metformin HCl) 500 Mg Tab 1,000 Mg PO BIDPC Losartan-Hydrochlorothiazide 100-12.5 Mg Tab 1 Tab PO DAILY Loperamide (Loperamide HCl) 2 Mg Cap 2 Mg PO DIRECTED PRN One capsule after each loose stool. Not to exceed 8 capsules per day. Levothyroxine (Levothyroxine Sodium) 50 Mcg Tab 50 Mcg PO DAILY Lasix (Furosemide) 20 Mg Tab 20 Mg PO DAILY Lantus Inj (Insulin Glargine) 1,000 Unit/10 Ml Vial 16 Units SQ AC BREAKFAST Gabapentin 800 Mg Tab 800 Mg PO TID Duloxetine DR (Duloxetine HCl) 30 Mg Capdr 30 Mg PO BID Dorzolamide Opth Drops (Dorzolamide HCl) 2% Soln 1 Drop EACH EYE BID Donepezil 10 Mg Tab 10 Mg PO HS Cephalexin 500 Mg Cap 500 Mg PO Q6H Carvedilol 3.125 Mg Tab 3.125 Mg PO BID Atorvastatin (Atorvastatin Calcium) 10 Mg Tab 10 Mg PO HS Allergies: Coded Allergies: No Known Allergies (Unverified Allergy, Unknown, 05/13/17) Active Ordered Medications Current Medications Medications (Trade) Dose Ordered Sig/Roman Route Start Time Stop Time Status Last Admin Sodium Chloride 1,000 ml @ 100 mls/hr Q10H IV 05/13/17 17:00 05/14/17 02:24 (NS Flush) 2 ml UNSCH PRN IV FLUSH 05/13/17 17:00 (NS Flush) 2 ml BID IV FLUSH 05/13/17 21:00 (Tylenol) 650 mg Q4H PRN PO 05/13/17 17:00 (Zofran Inj) 4 mg Q6H PRN IVP 05/13/17 17:00 (Narcan Inj) 0.4 mg UNSCH PRN IV PUSH 05/13/17 17:00 (Milk Of Magnesia Liq) 30 ml Q12H PRN PO 05/13/17 17:00 (Senokot) 17.2 mg Q12H PRN PO 05/13/17 17:00 (Dulcolax Supp) 10 mg DAILY PRN RECTAL 05/13/17 17:00 (Lactulose Liq) 30 ml DAILY PRN PO 05/13/17 17:00 Family History Family history attempted but patient unable to provide Social History Nonsmoker, nondrinker, no illicit drugs. Physical Exam Vital Signs Vital Signs Date Time Temp Pulse Resp B/P (MAP) Pulse Ox O2 Delivery O2 Flow Rate FiO2 05/14/17 00:38 98.4 90 18 171/75 (107) 94 05/13/17 19:43 97.7 61 18 153/66 (95) 95 05/13/17 19:24 05/13/17 18:00 58 15 168/75 (106) 96 Room Air 05/13/17 17:00 58 21 174/82 (112) 98 Room Air 05/13/17 16:00 58 19 165/71 (102) 100 Room Air 05/13/17 14:13 97 Room Air 05/13/17 13:56 98.0 89 16 102/51 (36) 97 Physical Exam GENERAL: This is a well-nourished, well-developed patient, in no apparent distress. Patient disoriented. SKIN: Shallow open lesions on chest, with 12 centimeter Eschars on abdomen, with no surrounding erythema or purulence patient does have ecchymosis of the right face, bruising. HEAD: Atraumatic. Normocephalic. No temporal or scalp tenderness. EYES: Pupils equal round and reactive. Extraocular motions intact. No scleral icterus. No injection or drainage. ENT: Nose without bleeding, purulent drainage or septal hematoma. Throat without erythema, tonsillar hypertrophy or exudate. Uvula midline. Airway patent. NECK: Trachea midline. No JVD or lymphadenopathy. Supple, nontender, no meningeal signs. CARDIOVASCULAR: Regular rate and rhythm without murmurs, gallops, or rubs. RESPIRATORY: Clear to auscultation. Breath sounds equal bilaterally. No wheezes , rales, or rhonchi. GASTROINTESTINAL: Abdomen soft, non-tender, nondistended. No hepato-splenomegaly , or palpable masses. No guarding. MUSCULOSKELETAL: Extremities without clubbing, cyanosis, or edema. No joint tenderness, effusion, or edema noted. No calf tenderness. Negative Homans sign bilaterally. NEUROLOGICAL: Awake and alert. Cranial nerves II through XII intact. Motor and sensory grossly within normal limits. Five out of 5 muscle strength in all muscle groups. Normal speech. Laboratory Laboratory Tests Test 05/13/17 15:50 White Blood Count 8.8 Red Blood Count 4.08 Hemoglobin 12.2 Hematocrit 37.2 Mean Corpuscular Volume 91.2 Mean Corpuscular Hemoglobin 29.8 Mean Corpuscular Hemoglobin Concent 32.7 Red Cell Distribution Width 14.7 Platelet Count 224 Mean Platelet Volume 9.5 Neutrophils (%) (Auto) 60.0 Lymphocytes (%) (Auto) 26.4 Monocytes (%) (Auto) 8.3 Eosinophils (%) (Auto) 4.5 Basophils (%) (Auto) 0.8 Neutrophils # (Auto) 5.3 Lymphocytes # (Auto) 2.3 Monocytes # (Auto) 0.7 Eosinophils # (Auto) 0.4 Basophils # (Auto) 0.1 CBC Comment DIFF FINAL Differential Comment Urine Color YELLOW Urine Turbidity CLEAR Urine pH 5.0 Urine Specific [place] 1.017 Urine Protein NEG Urine Glucose (UA) NEG Urine Ketones NEG Urine Occult Blood NEG Urine Nitrite NEG Urine Bilirubin NEG Urine Urobilinogen 2.0 Urine Leukocyte Esterase NEG Urine RBC LESS THAN 1 Urine WBC LESS THAN 1 Urine Squamous Epithelial Cells <1 Urine Amorphous Sediment RARE Urine Hyaline Casts 11 Urine Mucus FEW Microscopic Urinalysis Comment CULT NOT INDICATED Blood Urea Nitrogen 20 Creatinine 1.28 Random Glucose 217 Total Protein 7.5 Albumin 3.1 Calcium Level 8.6 Alkaline Phosphatase 132 Aspartate Amino Transf (AST/SGOT) 30 Alanine Aminotransferase (ALT/SGPT) 23 Total Bilirubin 0.3 Sodium Level 136 Potassium Level 3.5 Chloride Level 95 Carbon Dioxide Level 33.9 Anion Gap 7 Estimat Glomerular Filtration Rate 39 Result Diagram: 05/13/17 1550 05/13/17 1550 Imaging Last Impressions Pelvis X-Ray 05/13/171403 Signed Impressions: Service Date/Time: Saturday, May 13, 2017 14:49 - CONCLUSION: Negative for fracture or dislocation. Follow up in 7-10 days is suggested if symptoms persist. Byron Muro MD FACR Lumbar Spine CT 05/13/171403 Signed Impressions: Service Date/Time: Saturday, May 13, 2017 14:44 - CONCLUSION: 1. Moderate spinal stenosis and severe bilateral foraminal narrowing at L4-5. 2. Mild to moderate spinal stenosis and moderate bilateral foraminal narrowing at L3-4. 3. Mild spinal stenosis and moderate bilateral foraminal narrowing at L5-S1. 4. Mild spinal stenosis and bilateral foraminal narrowing at L2-3. 5. No acute fracture or spondylolysis. 6. Grade I anterolisthesis of L4 in relation to L5. 7. Diffuse degenerative changes and mild scoliosis of the lumbar spine. 8. 2.8 x 1.4 cm fat-containing left adrenal nodule consistent with possible myelolipoma. 9. 2 cm right renal cyst. Garett Roe MD Head CT 05/13/171403 Signed Impressions: Service Date/Time: Saturday, May 13, 2017 14:37 - CONCLUSION: Negative for an acute process. Byron Muro MD FACR Chest X-Ray 05/13/171403 Signed Impressions: Service Date/Time: Saturday, May 13, 2017 14:48 - CONCLUSION: Negative for an acute process. I don't see fracture. Uppermost sternal wire is fractured. Byron Muro MD FACR Cervical Spine CT 05/13/17 1404 Signed Impressions: Service Date/Time: Saturday, May 13, 2017 14:41 - CONCLUSION: Negative for fracture dislocation. No interval change from 05/10/17. Byron Muro MD FACR Caprini VTE Risk Assessment Caprini VTE Risk Assessment: Mod/High Risk (score >= 2) Caprini Risk Assessment Model Point Value = 1 Point Value = 2 Point Value = 3 Point Value = 5 Age 41-60 Minor surgery BMI > 25 kg/m2 Swollen legs Varicose veins or History of unexplained or recurrent spontaneous Oral contraceptives or hormone replacement Sepsis (< 1 month) Serious lung disease, including pneumonia (< 1 month) Abnormal pulmonary function Acute myocardial infarction Congestive heart failure (< 1 month) History of inflammatory bowel disease Medical patient at bed rest Age 61-74 Arthroscopic surgery Major open surgery (> 45 min) Laparoscopic surgery (> 45 min) Malignancy Confined to bed (> 72 hours) Immobilizing plaster cast Central venous access Age >= 75 History of VTE Family history of VTE Factor V Leiden Prothrombin [id number] Lupus anticoagulant Anticardiolipin antibodies Elevated serum homocysteine Heparin-induced thrombocytopenia Other congenital or acquired thrombophilia Stroke (< 1 month) Elective arthroplasty Hip, pelvis, or leg fracture Acute spinal cord injury (< 1 month) Prophylaxis Regimen Total Risk Factor Score Risk Level Prophylaxis Regimen 0-1 Low Early ambulation 2 Moderate Order ONE of the following: *Sequential Compression Device (SCD) *Heparin 5000 units SQ BID 3-4 Higher Order ONE of the following medications: *Heparin 5000 units SQ TID *Enoxaparin/Lovenox 40 mg SQ daily (WT < 150 kg, CrCl > 30 mL/min) *Enoxaparin/Lovenox 30 mg SQ daily (WT < 150 kg, CrCl > 10-29 mL/min) *Enoxaparin/Lovenox 30 mg SQ BID (WT < 150 kg, CrCl > 30 mL/min) AND/OR *Sequential Compression Device (SCD) 5 or more Highest Order ONE of the following medications: *Heparin 5000 units SQ TID (Preferred with Epidurals) *Enoxaparin/Lovenox 40 mg SQ daily (WT < 150 kg, CrCl > 30 mL/min) *Enoxaparin/Lovenox 30 mg SQ daily (WT < 150 kg, CrCl > 10-29 mL/min) *Enoxaparin/Lovenox 30 mg SQ BID (WT < 150 kg, CrCl > 30 mL/min) AND *Sequential Compression Device (SCD) Assessment and Plan Assessment and Plan //Status post mechanical fall. //Lumbar contusion, also blunt head trauma //Severe dementia -imaginh as above with no acute findings. -Patient unable to give meaningful history. -Continue dementia meds. -Hold Zanaflex. -We'll need placement due to multiple falls at her current facility //CT lumbar spine with severe bilateral foraminal narrowing L4-L5, moderate spinal stenosis, other findings as above. -Patient has been able to transfer with nursing however, exhibiting no weakness. -PT/OT. //Patient is poor candidate for any kind of surgery owing to severe dementia, poor candidate for any increase in anticoagulation due to multiple ecchymosis, risk of falls. //Incidental finding of possible myolipoma as above. Follow-up as outpatient. //Multiple skin eschars. -Likely secondary to patient picking, scratching (scratching during exam, although denied itch), neurogenic to a large degree. -Discussed with nursing. All of her lesions will need to be dressed to avoid scratching, and allow them to heal. //History of CAD. //Hypertension. Blood pressure appears acceptable. cont Blood pressure meds. Continue Plavix //Dehydration //Borderline BRAEDEN. -cr 1.3 from Baseline creatinine 0.9. -Likely secondary to dehydration -IV hydration ordered. Continue to monitor. Encourage by mouth intake. //Diabetes mellitus with Hyperglycemia. Glucose 217 on admission. -Place on insulin sliding scale and diabetic diet. Continue to monitor. Discussed Condition With Patient, nurse, ED physician. Calderon Hubbard MD May 14, 2017 02:55
[2017-05-14] MEDS ORDERED: DEXTROSE 50% IN WATER 50 ML VIAL(D50) IV PUSH PRN (06:00)
[2017-05-14] MEDS ORDERED: GLUCAGON 1 MG/ML VIAL OTHER PRN (06:00)
[2017-05-14] MEDS: LEVOTHYROXINE SODIUM 50 MCG TAB PO SCH (06:30)
[2017-05-14] MEDS ORDERED: INSULIN GLARGINE 1,000 UNITS/10 ML VIAL SQ SCH (07:00)
[2017-05-14] MEDS: INSULIN DETEMIR 100 UNITS/ML VIAL SQ SCH (07:16)
[2017-05-14] MEDS: INSULIN ASPART SUPPLEMENTAL SCALE SQ SCH ×4 (08:00→21:10)
[2017-05-14] MEDS ORDERED: NON-FORMULARY DRUG (Losartan-Hydrochlorothiazide 1 TAB) PO SCH (09:00)
[2017-05-14] MEDS: SODIUM CHLORIDE 0.9% FLUSH 10 ML FLUSH IV FLUSH SCH ×2 (09:00→19:59)
[2017-05-14] MEDS: LOSARTAN 50 MG TAB PO SCH (09:55)
[2017-05-14] MEDS: HYDROCHLOROTHIAZIDE 12.5 MG CAP PO SCH (09:55)
[2017-05-14] MEDS: DORZOLAMIDE 2% OPTH SOLN 200 DROP/10 ML BTLO EACH EYE SCH ×2 (09:56→21:09)
[2017-05-14] MEDS: CARVEDILOL 3.125 MG TAB PO SCH ×2 (09:56→21:10)
[2017-05-14] MEDS: FUROSEMIDE 20 MG TAB PO SCH (09:56)
[2017-05-14] MEDS: DULoxetine HCl DR 30 MG CAP PO SCH ×2 (09:56→21:10)
[2017-05-14] MEDS: CLOPIDOGREL 75 MG TAB PO SCH (09:56)
--- NOTE | 2017-05-14 12:14 | HHI.PR ---
Subjective Remarks Follow up for fall, dementia. The patient is awake, alert, oriented to self only. She states she feels better today. She is not able to explain the events leading up to her admission yesterday. She does state that she falls a lot but cannot quantify how often. She admits that usually her falls are when she's first trying to stand up. She states she gets dizzy sometimes when she stands. We extensively discussed slow transitions from lying to sitting to standing and resting 1-5 minutes in between positive changes. She verbalized understanding however is forgetful when asked to repeat instructions few minutes later. Currently the patient complains only of a mild headache, states it hurts "just a little bit". Otherwise, the patient denies any currently lightheadedness, dizziness, blurred vision, unilateral numbness/weakness, chest pain, palpitations, shortness of breath, abdominal pain/nausea/vomiting/diarrhea, or urinary complaints. She admits that she probably needs more help at home. Objective Vitals Vital Signs Date Time Temp Pulse Resp B/P (MAP) Pulse Ox O2 Delivery O2 Flow Rate FiO2 05/14/17 11:47 98.4 72 16 154/68 (96) 96 05/14/17 08:00 98.0 67 18 162/72 (102) 94 166/68 (100) 133/82 (99) 05/14/17 04:26 98.1 63 19 152/69 (96) 98 05/14/17 00:38 98.4 90 18 171/75 (107) 94 05/13/17 19:43 97.7 61 18 153/66 (95) 95 05/13/17 19:24 05/13/17 18:00 58 15 168/75 (106) 96 Room Air 05/13/17 17:00 58 21 174/82 (112) 98 Room Air 05/13/17 16:00 58 19 165/71 (102) 100 Room Air 05/13/17 14:13 97 Room Air 05/13/17 13:56 98.0 89 16 102/51 (68) 97 I/O 05/13/17 05/13/17 05/13/17 05/14/17 05/14/17 05/14/17 07:00 15:00 23:00 07:00 15:00 23:00 Intake Total 500 ml Output Total 250 ml Balance 250 ml Intake IV Total 500 ml Output Urine Total 250 ml # Voids 1 Result Diagram: 05/13/17 1550 05/13/17 1550 Imaging Last Impressions Pelvis X-Ray 05/13/171403 Signed Impressions: Service Date/Time: Saturday, May 13, 2017 14:49 - CONCLUSION: Negative for fracture or dislocation. Follow up in 7-10 days is suggested if symptoms persist. Byrno Muro MD FACR Lumbar Spine CT 05/13/171403 Signed Impressions: Service Date/Time: Saturday, May 13, 2017 14:44 - CONCLUSION: 1. Moderate spinal stenosis and severe bilateral foraminal narrowing at L4-5. 2. Mild to moderate spinal stenosis and moderate bilateral foraminal narrowing at L3-4. 3. Mild spinal stenosis and moderate bilateral foraminal narrowing at L5-S1. 4. Mild spinal stenosis and bilateral foraminal narrowing at L2-3. 5. No acute fracture or spondylolysis. 6. Grade I anterolisthesis of L4 in relation to L5. 7. Diffuse degenerative changes and mild scoliosis of the lumbar spine. 8. 2.8 x 1.4 cm fat-containing left adrenal nodule consistent with possible myelolipoma. 9. 2 cm right renal cyst. Garett Roe MD Head CT 05/13/171403 Signed Impressions: Service Date/Time: Saturday, May 13, 2017 14:37 - CONCLUSION: Negative for an acute process. Byron Muro MD FACR Chest X-Ray 05/13/171403 Signed Impressions: Service Date/Time: Saturday, May 13, 2017 14:48 - CONCLUSION: Negative for an acute process. I don't see fracture. Uppermost sternal wire is fractured. Byron Muro MD FACR Cervical Spine CT 05/13/171403 Signed Impressions: Service Date/Time: Saturday, May 13, 2017 14:41 - CONCLUSION: Negative for fracture dislocation. No interval change from 05/10/17. Byron Muro MD FACR Objective Remarks GENERAL: Well-nourished, well-developed pleasant elderly female patient in NAD. SKIN: Warm and dry. Superficial excoriations throughout extremities and chest. HEENT: Normocephalic. Right periorbital ecchymosis. Pupils equal and round. Mucous membranes pink and moist. NECK: Supple. Trachea midline. CARDIOVASCULAR: Regular rate and rhythm. S1, S2 noted. No murmur appreciated. RESPIRATORY: No accessory muscle use. Clear to auscultation. Breath sounds equal bilaterally. GASTROINTESTINAL: Abdomen soft, non-tender, nondistended. Normoactive bowel sounds x4. MUSCULOSKELETAL: No obvious deformities. Extremities without clubbing, cyanosis , or edema. NEUROLOGICAL: Awake and alert. No obvious cranial nerve deficits. Motor grossly within normal limits. 5/5 muscle strength in bilateral upper and lower extremities. Normal speech. PSYCHIATRIC: Appropriate mood and affect; insight and judgment fair. Medications and IVs Current Medications Medications (Trade) Dose Ordered Sig/Roman Route Start Time Stop Time Status Last Admin Sodium Chloride 1,000 ml @ 100 mls/hr Q10H IV 05/13/17 17:00 05/14/17 02:24 (NS Flush) 2 ml UNSCH PRN IV FLUSH 05/13/17 17:00 (NS Flush) 2 ml BID IV FLUSH 05/13/17 21:00 05/14/17 09:00 (Tylenol) 650 mg Q4H PRN PO 05/13/17 17:00 (Zofran Inj) 4 mg Q6H PRN IVP 05/13/17 17:00 (Narcan Inj) 0.4 mg UNSCH PRN IV PUSH 05/13/17 17:00 (Milk Of Magnesia Liq) 30 ml Q12H PRN PO 05/13/17 17:00 (Senokot) 17.2 mg Q12H PRN PO 05/13/17 17:00 (Dulcolax Supp) 10 mg DAILY PRN RECTAL 05/13/17 17:00 (Lactulose Liq) 30 ml DAILY PRN PO 05/13/17 17:00 (Lipitor) 10 mg HS PO 05/14/17 21:00 (Coreg) 3.125 mg BID PO 05/14/17 09:00 05/14/17 09:56 (Plavix) 75 mg DAILY PO 05/14/17 09:00 05/14/17 09:56 (Aricept) 10 mg HS PO 05/14/17 21:00 (Trusopt 2% Opth Soln) 1 drop BID EACH EYE 05/14/17 09:00 05/14/17 09:56 (Cymbalta Dr) 30 mg BID PO 05/14/17 09:00 05/14/17 09:56 (Lasix) 20 mg DAILY PO 05/14/17 09:00 05/14/17 09:56 (Synthroid) 50 mcg DAILY@0600 PO 05/14/17 06:00 05/14/17 06:30 (D50w (Vial) Inj) 50 ml UNSCH PRN IV PUSH 05/14/17 06:00 (Glucagon Inj) 1 mg UNSCH PRN OTHER 05/14/17 06:00 (NovoLOG SUPPLEMENTAL SCALE) 1 ACHS SLIDING SCALE SQ 05/14/17 08:00 05/14/17 08:00 (Cozaar) 100 mg DAILY PO 05/14/17 09:00 05/14/17 09:55 (Microzide) 12.5 mg DAILY PO 05/14/17 09:00 05/14/17 09:55 (Levemir Inj) 16 units AC BREAKFAST SQ 05/14/17 07:15 05/14/17 07:16 A/P Problem List: (1) Frequent falls ICD Code: R29.6 - Repeated falls (2) Closed head injury ICD Code: S09.90XA - Unspecified injury of head, initial encounter (3) Hyperglycemia ICD Code: R73.9 - Hyperglycemia, unspecified Status: Acute (4) Dehydration ICD Code: E86.0 - Dehydration Status: Acute Assessment and Plan 87-year-old female with history of dementia, HTN, CAD, DM, arthritis, presents from [facility] after recurrent falls Mechanical Fall, Lumbar Contusion, Closed Head Injury: suspect combination of dementia with orthostatic hypotension and arthritis. -Head CT images reviewed, no acute findings -C-spine CT shows multilevel degenerative changes without fracture or dislocations -L-spine CT reviewed, shows moderate stenosis and severe bilateral foraminal narrowing at L4-5; mild to mod stenosis and mod bilateral foraminal narrowing L3 -4; mild stenosis and mod bilateral foraminal narrowing at L5-S1 -Orthostatics positive, apply marian hose, counseled on slow transitions -Give IVF -Hold patient's Zanaflex -Monitor orthostatics -Consult PT/OT, likely needs to go to rehab/SNF as patient with multiple falls at current [facility]; case management consulted Severe dementia: patient oriented to self only. Unable to provide meaningful history. -Head CT unremarkable as above -Continue home dementia medications Spinal Stenosis: CT lumbar spine with moderate bilateral foraminal narrowing L4- L5, moderate spinal stenosis, other findings as above. Patient is poor candidate for any kind of surgery owing to severe dementia, poor candidate for any increase in anticoagulation due to multiple ecchymosis, risk of falls. -Patient has been able to transfer with nursing however, exhibiting no weakness. -PT/OT consulted as above Incidental finding of possible myolipoma on imaging: -Follow-up as outpatient. Multiple skin eschars/excoriations: Likely secondary to patient picking, scratching (scratching during exam, although denied itch), largely neurogenic. -Discussed with nursing. All of her lesions will need to be dressed to avoid scratching, and allow them to heal. CAD/HTN: Blood pressure appears acceptable. -Cont home antihypertensives and Plavix Dehydration, with Borderline BRAEDEN: Cr 1.3, increased from baseline creatinine 0.9. -Likely secondary to dehydration -IV hydration ordered. -Continue to monitor. -Encourage oral intake. Diabetes mellitus with Hyperglycemia: Glucose 217 on admission. -Restart patient's home lantus 16u sq ac qd -Place on insulin sliding scale and diabetic diet. -Continue to monitor. DVT Prophylaxis: teds/SCDs Discharge Planning Await PT/OT evaluations. Case management to assist with discharge to SNF. Laverne uBrns PA-C May 14, 2017 12:14 pm
[2017-05-14 14:07] LABS: BASOPHIL % 0.5 % (0.0-2.0); EOSINOPHIL # 0.4 TH/MM3 (0-0.4); EOSINOPHIL % 5.3 % (0.0-4.0); HEMO FLAGS DIFF FINAL; LYMPH % 19.6 % (9.0-44.0); LYMPHOCYTE # 1.4 TH/MM3 (1.0-4.8); MEAN CELL VOLUME 90.2 FL (80.0-100.0); MEAN CORPUSCULAR HEMOGLOBIN 30.2 PG (27.0-34.0); MEAN CORPUSCULAR HGB CONC 33.5 % (32.0-36.0); MONO % 6.3 % (0.0-8.0); NEUT % 68.3 % (16.0-70.0); PLATELET COUNT 236 TH/MM3 (150-450); RED CELL DISTRIBUTION WIDTH 14.9 % (11.6-17.2); WHITE BLOOD COUNT 7.3 TH/MM3 (4.0-11.0)
[2017-05-14 14:35] LABS: BICARBONATE 33.8 MEQ/L (21.0-32.0)
--- NOTE | 2017-05-14 18:04 | EKG ---
Date Performed: 05/13/2017 Time Performed: 14:29:08 PTAGE: 87 years EKG: Sinus rhythm WITH SINUS ARRHYTHMIA NONSPECIFIC T-WAVE ABNORMALITY BORDERLINE ECG Compared to prior tracing no sig nificant change PREVIOUS TRACING : 05/10/2017 10.38.34 DOCTOR: Keyanna Stoddard Interpretating Date/Time 05/14/2017 18:03:39
[2017-05-14] MEDS: ATORVASTATIN 10 MG TAB PO SCH (21:10)
[2017-05-14] MEDS: DONEPEZIL HCL 5 MG TAB PO SCH (21:10)
[2017-05-15] VITALS (7 sets, daily range): BP systolic 122–198; BP diastolic 55–86; PULSE 73–84; RESP 16–20; TEMP 98.1–98.4; O2SAT 93–99
[2017-05-15] MEDS: LEVOTHYROXINE SODIUM 50 MCG TAB PO SCH (05:38)
[2017-05-15] MEDS: INSULIN ASPART SUPPLEMENTAL SCALE SQ SCH ×4 (08:00→21:47)
[2017-05-15] MEDS ORDERED: WALKER WHEELS/F1 MIS (08:49)
[2017-05-15] MEDS: INSULIN DETEMIR 100 UNITS/ML VIAL SQ SCH (08:51)
[2017-05-15] MEDS: LOSARTAN 50 MG TAB PO SCH (08:56)
[2017-05-15] MEDS: CLOPIDOGREL 75 MG TAB PO SCH (08:56)
[2017-05-15] MEDS: DULoxetine HCl DR 30 MG CAP PO SCH ×2 (08:56→21:46)
[2017-05-15] MEDS: HYDROCHLOROTHIAZIDE 12.5 MG CAP PO SCH (08:56)
[2017-05-15] MEDS: DORZOLAMIDE 2% OPTH SOLN 200 DROP/10 ML BTLO EACH EYE SCH ×2 (08:57→21:46)
[2017-05-15] MEDS: SODIUM CHLOR 0.9% 1000 ML INJ 1,000 ML IV SCH ×2 (08:57→17:00)
[2017-05-15] MEDS: FUROSEMIDE 20 MG TAB PO SCH (08:57)
[2017-05-15] MEDS: CARVEDILOL 3.125 MG TAB PO SCH ×2 (08:59→21:46)
[2017-05-15] MEDS: SODIUM CHLORIDE 0.9% FLUSH 10 ML FLUSH IV FLUSH SCH ×2 (08:59→21:00)
--- NOTE | 2017-05-15 09:10 | HHI.PR ---
Subjective Remarks Follow up on patient with fall, dementia. Patient states she doesn't "feel so good". Reports abdominal pain. Denies any nausea or vomiting. Denies any fever or chills. Denies any dysuria or other urinary complaints. Denies any diarrhea or constipation. Denies any chest pain or dyspnea. States she has an appetite. Objective Vitals Vital Signs Date Time Temp Pulse Resp B/P (MAP) Pulse Ox O2 Delivery O2 Flow Rate FiO2 05/15/17 07:26 98.1 74 20 171/74 (106) 99 05/15/17 03:02 98.3 81 18 141/70 (93) 93 05/14/17 23:15 98.5 69 16 194/77 (116) 96 05/14/17 19:47 98.0 82 17 166/65 (98) 94 05/14/17 16:25 98.1 77 18 166/73 (104) 97 05/14/17 11:47 98.4 72 16 154/68 (96) 96 I/O 05/14/17 05/14/17 05/14/17 05/15/17 05/15/17 05/15/17 06:59 14:59 22:59 06:59 14:59 22:59 Intake Total 938 ml Balance 938 ml Intake IV Total 938 ml Result Diagram: 05/14/17 1345 05/14/17 1345 Imaging Last Impressions Pelvis X-Ray 05/13/17 140 Signed Impressions: Service Date/Time: Saturday, May 13, 2017 14:49 - CONCLUSION: Negative for fracture or dislocation. Follow up in 7-10 days is suggested if symptoms persist. Byron Muro MD FACR Lumbar Spine CT 05/13/17 1404 Signed Impressions: Service Date/Time: Saturday, May 13, 2017 14:44 - CONCLUSION: 1. Moderate spinal stenosis and severe bilateral foraminal narrowing at L4-5. 2. Mild to moderate spinal stenosis and moderate bilateral foraminal narrowing at L3-4. 3. Mild spinal stenosis and moderate bilateral foraminal narrowing at L5-S1. 4. Mild spinal stenosis and bilateral foraminal narrowing at L2-3. 5. No acute fracture or spondylolysis. 6. Grade I anterolisthesis of L4 in relation to L5. 7. Diffuse degenerative changes and mild scoliosis of the lumbar spine. 8. 2.8 x 1.4 cm fat-containing left adrenal nodule consistent with possible myelolipoma. 9. 2 cm right renal cyst. Garett Roe MD Head CT 05/13/171403 Signed Impressions: Service Date/Time: Saturday, May 13, 2017 14:37 - CONCLUSION: Negative for an acute process. Byron Muro MD FACR Chest X-Ray 05/13/171403 Signed Impressions: Service Date/Time: Saturday, May 13, 2017 14:48 - CONCLUSION: Negative for an acute process. I don't see fracture. Uppermost sternal wire is fractured. Byron Muro MD FACR Cervical Spine CT 05/13/171403 Signed Impressions: Service Date/Time: Saturday, May 13, 2017 14:41 - CONCLUSION: Negative for fracture dislocation. No interval change from 05/10/17. Byron Muro MD FACR Objective Remarks GENERAL: Well-nourished, well-developed pleasant elderly female patient in [facility]. Lying in hospital bed. Asleep but easily awakens to voice. SKIN: Warm and dry. Superficial excoriations throughout extremities and chest, no evidence of infection. HEENT: Normocephalic. Right periorbital ecchymosis, resolving. EOMI. Mucous membranes pink and moist. NECK: Supple. Trachea midline. CARDIOVASCULAR: Regular rate and rhythm. S1, S2 noted. No murmur appreciated. RESPIRATORY: No accessory muscle use. Clear to auscultation. Breath sounds equal bilaterally. GASTROINTESTINAL: Abdomen soft, nondistended. (+)Mild diffuse tenderness to palpation. Normoactive bowel sounds x4. MUSCULOSKELETAL: No obvious deformities. Extremities without clubbing, cyanosis , or edema. NEUROLOGICAL: Awake and alert. Able to move all extremities spontaneously. Nonfocal. Normal speech. PSYCHIATRIC: Appropriate mood and affect; insight and judgment fair. Medications and IVs Current Medications Medications (Trade) Dose Ordered Sig/Roman Route Start Time Stop Time Status Last Admin Sodium Chloride 1,000 ml @ 100 mls/hr Q10H IV 05/13/17 17:00 05/14/17 13:00 (NS Flush) 2 ml UNSCH PRN IV FLUSH 05/13/17 17:00 (NS Flush) 2 ml BID IV FLUSH 05/13/17 21:00 05/14/17 09:00 (Tylenol) 650 mg Q4H PRN PO 05/13/17 17:00 (Zofran Inj) 4 mg Q6H PRN IVP 05/13/17 17:00 (Narcan Inj) 0.4 mg UNSCH PRN IV PUSH 05/13/17 17:00 (Milk Of Magnesia Liq) 30 ml Q12H PRN PO 05/13/17 17:00 (Senokot) 17.2 mg Q12H PRN PO 05/13/17 17:00 (Dulcolax Supp) 10 mg DAILY PRN RECTAL 05/13/17 17:00 (Lactulose Liq) 30 ml DAILY PRN PO 05/13/17 17:00 (Lipitor) 10 mg HS PO 05/14/17 21:00 05/14/17 21:10 (Coreg) 3.125 mg BID PO 05/14/17 09:00 05/14/17 21:10 (Plavix) 75 mg DAILY PO 05/14/17 09:00 05/14/17 09:56 (Aricept) 10 mg HS PO 05/14/17 21:00 05/14/17 21:10 (Trusopt 2% Opth Soln) 1 drop BID EACH EYE 05/14/17 09:00 05/14/17 21:09 (Cymbalta Dr) 30 mg BID PO 05/14/17 09:00 05/14/17 21:10 (Lasix) 20 mg DAILY PO 05/14/17 09:00 05/14/17 09:56 (Synthroid) 50 mcg DAILY@0600 PO 05/14/17 06:00 05/15/17 05:38 (D50w (Vial) Inj) 50 ml UNSCH PRN IV PUSH 05/14/17 06:00 (Glucagon Inj) 1 mg UNSCH PRN OTHER 05/14/17 06:00 (NovoLOG SUPPLEMENTAL SCALE) 1 ACHS SLIDING SCALE SQ 05/14/17 08:00 05/14/17 21:10 (Cozaar) 100 mg DAILY PO 05/14/17 09:00 05/14/17 09:55 (Microzide) 12.5 mg DAILY PO 05/14/17 09:00 05/14/17 09:55 (Levemir Inj) 16 units AC BREAKFAST SQ 05/14/17 07:15 05/14/17 07:16 A/P Problem List: (1) Frequent falls ICD Code: R29.6 - Repeated falls (2) Closed head injury ICD Code: S09.90XA - Unspecified injury of head, initial encounter (3) Hyperglycemia ICD Code: R73.9 - Hyperglycemia, unspecified Status: Acute (4) Dehydration ICD Code: E86.0 - Dehydration Status: Acute Assessment and Plan 87-year-old female with history of dementia, HTN, CAD, DM, arthritis, presents from [facility] after recurrent falls Mechanical Fall, Lumbar Contusion, Closed Head Injury: suspect combination of dementia with orthostatic hypotension and arthritis. -Head CT images reviewed, no acute findings -C-spine CT shows multilevel degenerative changes without fracture or dislocations -L-spine CT reviewed, shows moderate stenosis and severe bilateral foraminal narrowing at L4-5; mild to mod stenosis and mod bilateral foraminal narrowing L3 -4; mild stenosis and mod bilateral foraminal narrowing at L5-S1 -Orthostatics positive, apply marian hose, counseled on slow transitions -Give IVF -Hold patient's Zanaflex -Monitor orthostatics -Likely needs to go to rehab/SNF as patient with multiple falls at current [facility]; case management consulted. Continue participation with PT. OT pending. Severe dementia: patient oriented to self only. Unable to provide meaningful history. -Head CT unremarkable as above -Continue home dementia medications Spinal Stenosis: CT lumbar spine with moderate bilateral foraminal narrowing L4- L5, moderate spinal stenosis, other findings as above. Patient is poor candidate for any kind of surgery owing to severe dementia, poor candidate for any increase in anticoagulation due to multiple ecchymosis, risk of falls. -Patient has been able to transfer with nursing however, exhibiting no weakness. -PT/OT consulted as above Hypokalemia - replete with po and IV - check mag level - monitor Incidental finding of possible myolipoma on imaging: -Follow-up as outpatient. Multiple skin eschars/excoriations: Likely secondary to patient picking, scratching (scratching during exam, although denied itch), largely neurogenic. -Discussed with nursing. All of her lesions will need to be dressed to avoid scratching, and allow them to heal. CAD/HTN: -BP uncontrolled. -Cont home antihypertensives and Plavix -Start Nifedipine SR 60mg daily -Clonidine 0.1mg prn with parameters Dehydration, with Borderline BRAEDEN: Cr 1.3, increased from baseline creatinine 0.9. -Likely secondary to dehydration -treated with IV hydration. -Continue to monitor. Resolved. -Encourage oral intake. Diabetes mellitus with Hyperglycemia: Glucose 217 on admission. -Continue patient's home lantus 16u sq ac qd -Continue insulin sliding scale and diabetic diet. -Continue to monitor. Hypothyroidism -Continue on home dose of Synthroid -check TSH level DVT Prophylaxis: teds/SCDs Discussed with patient, nursing staff and Dr. Gamboa Discharge Planning Case management to assist with discharge to SNF Deedee Loving May 15, 2017 09:10
[2017-05-15] MEDS ORDERED: POTASSIUM CHLORIDE 10 MEQ CONTROLLED RELEASE TAB PO ONE (10:30)
[2017-05-15] MEDS ORDERED: NS + KCL 20 MEQ INJ 1,000 ML IV SCH (10:30)
[2017-05-15] MEDS ORDERED: POLYETHYLENE GLYCOL 17 GM PKG PO ONE (10:30)
[2017-05-15] MEDS: DOCUSATE SODIUM 50 MG/SENNA 8.6 MG TAB PO SCH ×2 (11:05→21:46)
[2017-05-15 11:35] LABS: BICARBONATE 34.3 MEQ/L (21.0-32.0); MAGNESIUM 1.4 MG/DL (1.5-2.5)
[2017-05-15 11:36] LABS: POTASSIUM 3.5 MEQ/L (3.5-5.1)
[2017-05-15] MEDS ORDERED: cloNIDine HCL 0.1 MG TAB PO PRN (12:45)
[2017-05-15] MEDS ORDERED: MAGNESIUM OXIDE 400 MG TAB PO ONE (13:00)
[2017-05-15] MEDS ORDERED: NIFEdipine 60 MG SUSTAINED RELEASE TAB PO ONE (15:00)
[2017-05-15] MEDS ORDERED: POTASSIUM CHLORIDE INJ 20 MEQ in SODIUM CHLOR 0.9% 1000 ML INJ 1,000 ML IV SCH (17:00)
[2017-05-15] MEDS: DONEPEZIL HCL 5 MG TAB PO SCH (21:46)
[2017-05-15] MEDS: ATORVASTATIN 10 MG TAB PO SCH (21:46)
[2017-05-16 03:16] VITALS: BP 114/55; PULSE 78; RESP 16; TEMP 98.2; O2SAT 99
[2017-05-16] MEDS: LEVOTHYROXINE SODIUM 50 MCG TAB PO SCH (06:04)
[2017-05-16 06:52] LABS: BICARBONATE 31.2 MEQ/L (21.0-32.0); MAGNESIUM 1.5 MG/DL (1.5-2.5)
[2017-05-16] MEDS ORDERED: POTASSIUM CHLORIDE 10 MEQ CONTROLLED RELEASE TAB PO ONE (07:30)
[2017-05-16] MEDS ORDERED: MAGNESIUM OXIDE 400 MG TAB PO ONE (07:30)
[2017-05-16 07:34] VITALS: BP_SYST 104; BP_SYST 107; BP_SYST 133; BP_DIAS 53; BP_DIAS 57; BP_DIAS 62; PULSE 77; RESP 18; TEMP 97.7; O2SAT 98
[2017-05-16] MEDS: INSULIN ASPART SUPPLEMENTAL SCALE SQ SCH ×4 (08:00→21:16)
[2017-05-16] MEDS: INSULIN DETEMIR 100 UNITS/ML VIAL SQ SCH (08:53)
[2017-05-16] MEDS: DORZOLAMIDE 2% OPTH SOLN 200 DROP/10 ML BTLO EACH EYE SCH ×2 (08:53→21:14)
[2017-05-16] MEDS: FUROSEMIDE 20 MG TAB PO SCH (08:57)
[2017-05-16] MEDS: DULoxetine HCl DR 30 MG CAP PO SCH ×2 (08:57→21:15)
[2017-05-16] MEDS: CARVEDILOL 3.125 MG TAB PO SCH (08:58)
[2017-05-16] MEDS: SODIUM CHLORIDE 0.9% FLUSH 10 ML FLUSH IV FLUSH SCH ×2 (08:58→21:00)
[2017-05-16] MEDS: CLOPIDOGREL 75 MG TAB PO SCH (08:58)
[2017-05-16] MEDS: DOCUSATE SODIUM 50 MG/SENNA 8.6 MG TAB PO SCH ×2 (08:59→21:15)
[2017-05-16] MEDS ORDERED: NIFEdipine 60 MG SUSTAINED RELEASE TAB PO SCH (09:00)
[2017-05-16 11:22] VITALS: BP 124/60; PULSE 78; RESP 20; TEMP 98.4; O2SAT 99
--- NOTE | 2017-05-16 11:26 | HHI.FF ---
Face to Face Verification Diagnosis: (1) Hypothyroidism (2) Hypertension (3) Hypokalemia (4) Frequent falls (5) Orthostatic hypotension (6) Lumbar contusion (7) Dehydration (8) Hyperglycemia (9) DDD (degenerative disc disease), lumbar (10) Lumbar stenosis (11) Closed head injury Physical Therapy Order: Evaluate and Treat, Improve ambulation, Strength and gait training Occupational Therapy Order: Evaluate and Treat, Improve ADL, Gross motor coordination, Fine motor coordination Home Health Nursing Order: Medical education Signs/symptoms of disease process Diabetic education Nursing assessment with vital signs I have seen patient Meggan Doll on 05/16/17. My clinical findings support the need for the requested home health care services because: Deconditioned w/ increased weakness Limited ability to care for self High risk of falls I certify that my clinical findings support that this patient is homebound because: Impaired cognitive ability/safety Unsteady gait/balance Unsafe to leave home unassisted Unable to use public transportation Deedee Loving May 16, 2017 11:26
--- NOTE | 2017-05-16 11:57 | HHI.PR ---
Subjective Remarks Follow up on patient with fall, dementia. Patient seen and examined. Patient complaining of low back pain. Patient denies any other complaints at present. She appears confused. Oriented to self only. Discussed with Nadja CORMIER - patient impulsive, lack of safety awareness, repetitive questioning. Also reports urinary frequency and dysuria. Objective Vitals Vital Signs Date Time Temp Pulse Resp B/P (MAP) Pulse Ox O2 Delivery O2 Flow Rate FiO2 05/16/17 11:22 98.4 78 20 124/60 (81) 99 05/16/17 07:34 97.7 77 18 133/62 (85) 98 104/53 (70) 107/57 (74) 05/16/17 03:16 98.2 78 16 114/55 (74) 99 05/15/17 22:52 98.3 84 18 123/55 (77) 97 05/15/17 20:11 98.4 78 18 122/68 (86) 98 05/15/17 15:48 98.3 73 20 122/59 (80) 98 05/15/17 15:41 76 158/71 (100) 05/15/17 12:18 98.1 77 16 198/86 (123) 96 I/O 05/15/17 05/15/17 05/15/17 05/16/17 05/16/17 05/16/17 07:00 15:00 23:00 07:00 15:00 23:00 Intake Total 938 ml 240 ml 240 ml Output Total 300 ml Balance 938 ml -300 ml 240 ml 240 ml Intake Oral 240 ml 240 ml IV Total 938 ml Output Urine Total 300 ml # Voids 3 # Bowel Movements 1 2 Result Diagram: 05/14/17 1345 05/16/17 0524 Imaging Last Impressions Pelvis X-Ray 05/13/171403 Signed Impressions: Service Date/Time: Saturday, May 13, 2017 14:49 - CONCLUSION: Negative for fracture or dislocation. Follow up in 7-10 days is suggested if symptoms persist. Byron Muro MD FACR Lumbar Spine CT 05/13/17 140 Signed Impressions: Service Date/Time: Saturday, May 13, 2017 14:44 - CONCLUSION: 1. Moderate spinal stenosis and severe bilateral foraminal narrowing at L4-5. 2. Mild to moderate spinal stenosis and moderate bilateral foraminal narrowing at L3-4. 3. Mild spinal stenosis and moderate bilateral foraminal narrowing at L5-S1. 4. Mild spinal stenosis and bilateral foraminal narrowing at L2-3. 5. No acute fracture or spondylolysis. 6. Grade I anterolisthesis of L4 in relation to L5. 7. Diffuse degenerative changes and mild scoliosis of the lumbar spine. 8. 2.8 x 1.4 cm fat-containing left adrenal nodule consistent with possible myelolipoma. 9. 2 cm right renal cyst. Garett Roe MD Head CT 05/13/171403 Signed Impressions: Service Date/Time: Saturday, May 13, 2017 14:37 - CONCLUSION: Negative for an acute process. Byron Muro MD FACR Chest X-Ray 05/13/171403 Signed Impressions: Service Date/Time: Saturday, May 13, 2017 14:48 - CONCLUSION: Negative for an acute process. I don't see fracture. Uppermost sternal wire is fractured. Byron Muro MD FACR Cervical Spine CT 05/13/171403 Signed Impressions: Service Date/Time: Saturday, May 13, 2017 14:41 - CONCLUSION: Negative for fracture dislocation. No interval change from 05/10/17. Byron Muro MD FACR Objective Remarks GENERAL: Well-nourished, well-developed pleasant elderly female patient in [facility]. Lying in hospital bed. Asleep but easily awakens to voice. SKIN: Warm and dry. Superficial excoriations throughout extremities and chest, no evidence of infection. HEENT: Normocephalic. Right periorbital ecchymosis, resolving. EOMI. Mucous membranes pink and moist. NECK: Supple. Trachea midline. CARDIOVASCULAR: Regular rate and rhythm. S1, S2 noted. No murmur appreciated. RESPIRATORY: No accessory muscle use. Clear to auscultation. Breath sounds equal bilaterally. GASTROINTESTINAL: Abdomen soft, nondistended, nontender to palpation. Normoactive bowel sounds x4. MUSCULOSKELETAL: No obvious deformities. LUE edematous. No edema BLE. NEUROLOGICAL: Awake and alert. Able to move all extremities spontaneously. Nonfocal. Normal speech. PSYCHIATRIC: Oriented to self only. Judgement and insight poor. Medications and IVs Current Medications Medications (Trade) Dose Ordered Sig/Roman Route Start Time Stop Time Status Last Admin (NS Flush) 2 ml UNSCH PRN IV FLUSH 05/13/17 17:00 (NS Flush) 2 ml BID IV FLUSH 05/13/17 21:00 05/14/17 09:00 (Tylenol) 650 mg Q4H PRN PO 05/13/17 17:00 05/16/17 09:11 (Zofran Inj) 4 mg Q6H PRN IVP 05/13/17 17:00 (Narcan Inj) 0.4 mg UNSCH PRN IV PUSH 05/13/17 17:00 (Milk Of Magnesia Liq) 30 ml Q12H PRN PO 05/13/17 17:00 (Senokot) 17.2 mg Q12H PRN PO 05/13/17 17:00 (Dulcolax Supp) 10 mg DAILY PRN RECTAL 05/13/17 17:00 (Lactulose Liq) 30 ml DAILY PRN PO 05/13/17 17:00 (Lipitor) 10 mg HS PO 05/14/17 21:00 05/15/17 21:46 (Plavix) 75 mg DAILY PO 05/14/17 09:00 05/16/17 08:58 (Aricept) 10 mg HS PO 05/14/17 21:00 05/15/17 21:46 (Trusopt 2% Opth Soln) 1 drop BID EACH EYE 05/14/17 09:00 05/16/17 08:53 (Cymbalta Dr) 30 mg BID PO 05/14/17 09:00 05/16/17 08:57 (Synthroid) 50 mcg DAILY@0600 PO 05/14/17 06:00 05/16/17 06:04 (D50w (Vial) Inj) 50 ml UNSCH PRN IV PUSH 05/14/17 06:00 (Glucagon Inj) 1 mg UNSCH PRN OTHER 05/14/17 06:00 (NovoLOG SUPPLEMENTAL SCALE) 1 ACHS SLIDING SCALE SQ 05/14/17 08:00 05/16/17 08:00 (Cozaar) 100 mg DAILY PO 05/14/17 09:00 Future Hold 05/15/17 08:56 (Microzide) 12.5 mg DAILY PO 05/14/17 09:00 Future Hold 05/15/17 08:56 (Levemir Inj) 16 units AC BREAKFAST SQ 05/14/17 07:15 05/16/17 08:53 (Nidia-Colace) 1 tab BID PO 05/15/17 10:30 05/15/17 21:46 (Catapres) 0.1 mg Q6H PRN PO 05/15/17 12:45 05/15/17 12:52 Sodium Chloride 1,000 ml @ 42 mls/hr [id number] IV 05/15/17 17:00 05/15/17 17:00 A/P Problem List: (1) Frequent falls ICD Code: R29.6 - Repeated falls (2) Closed head injury ICD Code: S09.90XA - Unspecified injury of head, initial encounter (3) Hyperglycemia ICD Code: R73.9 - Hyperglycemia, unspecified Status: Acute (4) Dehydration ICD Code: E86.0 - Dehydration Status: Acute Assessment and Plan 87-year-old female with history of dementia, HTN, CAD, DM, arthritis, presents from [facility] after recurrent falls Mechanical Fall, Lumbar Contusion, Closed Head Injury: suspect combination of dementia with orthostatic hypotension and arthritis. -Head CT images reviewed, no acute findings -C-spine CT shows multilevel degenerative changes without fracture or dislocations -L-spine CT reviewed, shows moderate stenosis and severe bilateral foraminal narrowing at L4-5; mild to mod stenosis and mod bilateral foraminal narrowing L3 -4; mild stenosis and mod bilateral foraminal narrowing at L5-S1 -Orthostatics positive, apply lesly hose, counseled on slow transitions but patient does not appear to comprehend concern for falls/instructions on transitioning, wearing LESLY hose, etc. -Give IVF -Hold patient's Zanaflex, Gabapentin and Tramadol -Likely needs to go to rehab/SNF as patient with multiple falls at current [facility]; case management consulted. Continue participation with PT/OT. ?UTI - UA ordered - begin empiric Ceftriaxone - f/u on urine cx results LUE edema - obtain Doppler US to r/o DVT Orthostatic hypotension -hold all BP meds -counseled on slow transitions but patient does not appear to comprehend concern for falls/instructions on transitioning, wearing LESLY hose, etc. -monitor BP closely -continue LESLY hose -Monitor orthostatics Severe dementia: patient oriented to self only. Unable to provide meaningful history. -Head CT unremarkable as above -Continue home dementia medications -patient impulsive, lack of safety awareness Spinal Stenosis: CT lumbar spine with moderate bilateral foraminal narrowing L4- L5, moderate spinal stenosis, other findings as above. -Patient is poor candidate for any kind of surgery owing to severe dementia, poor candidate for any increase in anticoagulation due to multiple ecchymosis, risk of falls. -continue with PT/OT -Kpad prn back pain Hypokalemia - replete - mag level borderline low. Mag Ox 400mg po once. - am labs ordered to monitor response Incidental finding of possible myolipoma on imaging: -Follow-up as outpatient. Multiple skin eschars/excoriations: Likely secondary to patient picking, scratching (scratching during exam, although denied itch), largely neurogenic. -Discussed with nursing. All of her lesions will need to be dressed to avoid scratching, and allow them to heal. CAD/HTN: -hold all antihypertensives secondary to orthostatic hypotension -continue on Plavix -Clonidine 0.1mg prn with parameters Dehydration, with Borderline BRAEDEN: Cr 1.3, increased from baseline creatinine 0.9. -Likely secondary to dehydration -treated with IV hydration. -Continue to monitor. -Encourage oral intake. Diabetes mellitus with Hyperglycemia: Glucose 217 on admission. -Continue patient's home lantus 16u sq ac qd. Resume home Metformin 1000mg BID. -Continue insulin sliding scale and diabetic diet. -Continue to monitor. Hypothyroidism -Continue on home dose of Synthroid -TSH level WNL DVT Prophylaxis: teds/SCDs Discussed with patient, nursing staff and Dr. Gamboa Discharge Planning Case management to assist with d/c planning Deedee Loving May 16, 2017 11:57
[2017-05-16] MEDS ORDERED: cefTRIAXone INJ 1,000 MG in SODIUM CHLORIDE 0.9% INJ 100 ML IV SCH (16:00)
--- NOTE | 2017-05-16 16:30 | RADRPT ---
EXAM DATE/TIME: 05/16/2017 16:05 [facility] COMPARISON: No previous studies available for comparison. INDICATIONS : Left arm swelling. MEDICAL HISTORY : Hypertension. Dementia. Hypothyroidism. Coronary artery disease. Diabetes. Head trauma. Fall. Spinal stenosis. SURGICAL HISTORY : None. ENCOUNTER: Initial ACUITY: 1 day PAIN SCORE: 2/10 LOCATION: Left arm. FINDINGS: There is spontaneous flow documented in the brachial, basilic, cephalic, axillary, and subclavian vei ns. The vessels are compressible and augmentation response is documented. No filling defects are se en. The flow is phasic with respiration. Direction of flow in the jugular vein is caudal. CONCLUSION: 1. No sonographic evidence for left upper extremity DVT. Sb Ndiaye MD on May 16, 2017 at 16:28 Board Certified Radiologist. This report was verified electronically.
[2017-05-16] MEDS: SODIUM CHLOR 0.9% 1000 ML INJ 1,000 ML IV SCH (17:06)
[2017-05-16] MEDS ORDERED: metFORMIN HCL 500 MG TAB PO SCH (18:00)
[2017-05-16 20:08] VITALS: BP 112/55; PULSE 75; RESP 18; TEMP 98.3; O2SAT 98
[2017-05-16] MEDS: ATORVASTATIN 10 MG TAB PO SCH (21:14)
[2017-05-16] MEDS: DONEPEZIL HCL 5 MG TAB PO SCH (21:15)
[2017-05-16 23:41] VITALS: BP 121/57; PULSE 74; RESP 18; TEMP 97.9; O2SAT 99
[2017-05-17 04:05] VITALS: BP 134/61; PULSE 77; RESP 18; TEMP 98.2; O2SAT 98
[2017-05-17 07:58] VITALS: BP_SYST 123; BP_SYST 155; BP_SYST 158; BP_DIAS 59; BP_DIAS 61; BP_DIAS 69; PULSE 90; RESP 24; TEMP 98.6; O2SAT 98
[2017-05-17] MEDS ORDERED: ONDANSETRON HCL 4 MG/2 ML VIAL IV PUSH PRN (08:00)
[2017-05-17] MEDS ORDERED: GLUCAGON 1 MG/ML VIAL OTHER PRN (08:00)
[2017-05-17] MEDS ORDERED: ACETAMINOPHEN 325 MG TAB PO PRN (08:00)
[2017-05-17] MEDS ORDERED: DEXTROSE 50% IN WATER 50 ML VIAL(D50) IV PUSH PRN (08:00)
[2017-05-17 08:03] VITALS: BP 170/74; PULSE 79
[2017-05-17] MEDS ORDERED: LEVOTHYROXINE SODIUM 50 MCG TAB PO ONE (08:30)
[2017-05-17] MEDS: DULoxetine HCl DR 30 MG CAP PO SCH ×2 (09:00→22:17)
[2017-05-17] MEDS: DORZOLAMIDE 2% OPTH SOLN 200 DROP/10 ML BTLO EACH EYE SCH ×2 (09:00→21:55)
[2017-05-17] MEDS: ATORVASTATIN 10 MG TAB PO SCH (09:39)
[2017-05-17] MEDS: DOCUSATE SODIUM 50 MG/SENNA 8.6 MG TAB PO SCH ×2 (09:40→21:55)
[2017-05-17] MEDS: metFORMIN HCL 500 MG TAB PO SCH ×2 (09:40→17:37)
[2017-05-17] MEDS: CLOPIDOGREL 75 MG TAB PO SCH (09:40)
[2017-05-17] MEDS: INSULIN ASPART SUPPLEMENTAL SCALE SQ SCH ×4 (09:41→21:00)
[2017-05-17] MEDS: SODIUM CHLOR 0.9% 1000 ML INJ 1,000 ML IV SCH (09:42)
--- NOTE | 2017-05-17 10:02 | HHI.PR ---
Subjective Remarks Follow up on patient with dementia, recurrent falls, orthostatic hypotension. Patient seen and examined. Patient oriented to self only. She states several times she wants to go home. She denies any dizziness or lightheadedness. She denies any chest pain or shortness of breath. She denies any fever or chills. She denies any N/V or abdominal pain. She denies any dysuria, frequency or urgency. Objective Vitals Vital Signs Date Time Temp Pulse Resp B/P (MAP) Pulse Ox O2 Delivery O2 Flow Rate FiO2 05/17/17 08:03 79 170/74 (106) 05/17/17 07:58 98.6 90 24 158/69 (98) 98 155/61 (92) 123/59 (80) 05/17/17 04:05 98.2 77 18 134/61 (85) 98 05/16/17 23:41 97.9 74 18 121/57 (78) 99 05/16/17 20:08 98.3 75 18 112/55 (74) 98 05/16/17 11:22 98.4 78 20 124/60 (81) 99 I/O 05/16/17 05/16/17 05/16/17 05/17/17 05/17/17 05/17/17 07:00 15:00 23:00 07:00 15:00 23:00 Intake Total 240 ml Output Total 350 ml Balance 240 ml -350 ml Intake Oral 240 ml Output Urine Total 350 ml # Voids 3 Result Diagram: 05/14/17 1345 05/16/17 0524 Imaging Last Impressions Upper Extremity Ultrasound 05/16/17 0000 Signed Impressions: Service Date/Time: May 16:05 - CONCLUSION: 1. No sonographic evidence for left upper extremity DVT. Sb Ndiaye MD Pelvis X-Ray 05/13/17 1406 Signed Impressions: Service Date/Time: Saturday, May 13, 2017 14:49 - CONCLUSION: Negative for fracture or dislocation. Follow up in 7-10 days is suggested if symptoms persist. Byron Muro MD FACR Lumbar Spine CT 05/13/17 1409 Signed Impressions: Service Date/Time: Saturday, May 13, 2017 14:44 - CONCLUSION: 1. Moderate spinal stenosis and severe bilateral foraminal narrowing at L4-5. 2. Mild to moderate spinal stenosis and moderate bilateral foraminal narrowing at L3-4. 3. Mild spinal stenosis and moderate bilateral foraminal narrowing at L5-S1. 4. Mild spinal stenosis and bilateral foraminal narrowing at L2-3. 5. No acute fracture or spondylolysis. 6. Grade I anterolisthesis of L4 in relation to L5. 7. Diffuse degenerative changes and mild scoliosis of the lumbar spine. 8. 2.8 x 1.4 cm fat-containing left adrenal nodule consistent with possible myelolipoma. 9. 2 cm right renal cyst. Garett Roe MD Head CT 05/13/171403 Signed Impressions: Service Date/Time: Saturday, May 13, 2017 14:37 - CONCLUSION: Negative for an acute process. Byron Muro MD FACR Chest X-Ray 05/13/171403 Signed Impressions: Service Date/Time: Saturday, May 13, 2017 14:48 - CONCLUSION: Negative for an acute process. I don't see fracture. Uppermost sternal wire is fractured. Byron Muro MD FACR Cervical Spine CT 05/13/171403 Signed Impressions: Service Date/Time: Saturday, May 13, 2017 14:41 - CONCLUSION: Negative for fracture dislocation. No interval change from 05/10/17. Byron Muro MD FACR Objective Remarks GENERAL: Well-nourished, well-developed pleasant elderly female patient in [facility]. Lying in hospital bed. Awake. Confused. Oriented to self only. SKIN: Warm and dry. Superficial excoriations throughout extremities and chest, no evidence of infection. HEENT: Normocephalic. Right periorbital ecchymosis, resolving. EOMI. Mucous membranes pink and moist. NECK: Supple. Trachea midline. CARDIOVASCULAR: Irregular. S1, S2 noted. No murmur appreciated. RESPIRATORY: No accessory muscle use. Clear to auscultation. Breath sounds equal bilaterally. GASTROINTESTINAL: Abdomen soft, nondistended, nontender to palpation. Normoactive bowel sounds x4. MUSCULOSKELETAL: No obvious deformities. LUE edematous. No edema BLE. NEUROLOGICAL: Awake and alert. Able to move all extremities spontaneously. Nonfocal. Normal speech. PSYCHIATRIC: Oriented to self only. Judgement and insight poor. Medications and IVs Current Medications Medications (Trade) Dose Ordered Sig/Roman Route Start Time Stop Time Status Last Admin (Glucophage) 500 mg BIDPC PO 05/17/17 09:00 05/17/17 09:40 Ceftriaxone Sodium 1000 mg/ Sodium Chloride 100 ml @ 200 mls/hr Q24H IV 05/17/17 17:00 Sodium Chloride 1,000 ml @ 75 mls/hr [id number] IV 05/17/17 08:00 05/17/17 09:42 (Nidia-Colace) 1 tab BID PO 05/17/17 09:00 05/17/17 09:40 (Lipitor) 10 mg DAILY PO 05/17/17 09:00 05/17/17 09:39 (Aricept) 10 mg HS PO 05/17/17 21:00 (Plavix) 75 mg DAILY PO 05/17/17 09:00 05/17/17 09:40 (Trusopt 2% Opth Soln) 1 drop BID EACH EYE 05/17/17 09:00 (Cymbalta Dr) 30 mg BID PO 05/17/17 09:00 05/17/17 09:00 (D50w (Vial) Inj) 50 ml UNSCH PRN IV PUSH 05/17/17 08:00 (Glucagon Inj) 1 mg UNSCH PRN OTHER 05/17/17 08:00 (NovoLOG SUPPLEMENTAL SCALE) 1 ACHS SLIDING SCALE SQ 05/17/17 08:00 05/17/17 09:41 (Tylenol) 650 mg Q4H PRN PO 05/17/17 08:00 (Zofran Inj) 4 mg Q8HR PRN IV PUSH 05/17/17 08:00 (Synthroid) 50 mcg DAILY@0600 PO 05/18/17 06:00 (Levemir Inj) 16 units AC BREAKFAST SQ 05/18/17 07:00 UNV A/P Problem List: (1) Frequent falls ICD Code: R29.6 - Repeated falls (2) Closed head injury ICD Code: S09.90XA - Unspecified injury of head, initial encounter (3) Hyperglycemia ICD Code: R73.9 - Hyperglycemia, unspecified Status: Acute (4) Dehydration ICD Code: E86.0 - Dehydration Status: Acute Assessment and Plan 87-year-old female with history of dementia, HTN, CAD, DM, arthritis, presents from [facility] after recurrent falls Mechanical Fall, Lumbar Contusion, Closed Head Injury: suspect combination of dementia with orthostatic hypotension and arthritis. -Head CT images reviewed, no acute findings -C-spine CT shows multilevel degenerative changes without fracture or dislocations -L-spine CT reviewed, shows moderate stenosis and severe bilateral foraminal narrowing at L4-5; mild to mod stenosis and mod bilateral foraminal narrowing L3 -4; mild stenosis and mod bilateral foraminal narrowing at L5-S1 -Orthostatics positive, apply lesly hose, counseled on slow transitions but patient does not appear to comprehend concern for falls/instructions on transitioning, wearing LESLY hose, etc. -Hold patient's Zanaflex, Gabapentin and Tramadol -Likely needs to go to rehab/SNF as patient with multiple falls at current [facility]; case management consulted. Continue participation with PT/OT. ?UTI - UA ordered/pending - patient asymptomatic - begin empiric Ceftriaxone - f/u on urine cx results LUE edema - obtain Doppler US to r/o DVT - Negative Orthostatic hypotension -improved after holding all BP meds. -counseled on slow transitions but patient does not appear to comprehend concern for falls/instructions on transitioning, wearing LESLY hose, etc. -monitor BP closely -continue LESLY hose Severe dementia: patient oriented to self only. Unable to provide meaningful history. -Head CT unremarkable as above -Continue home dementia medications -patient impulsive, lack of safety awareness Spinal Stenosis: CT lumbar spine with moderate bilateral foraminal narrowing L4- L5, moderate spinal stenosis, other findings as above. -Patient is poor candidate for any kind of surgery owing to severe dementia, poor candidate for any increase in anticoagulation due to multiple ecchymosis, risk of falls. -continue with PT/OT -Kpad prn back pain Hypokalemia - replete - mag level borderline low. Mag Ox 400mg po once. - am labs ordered to monitor response/pending Incidental finding of possible myolipoma on imaging: -Follow-up as outpatient. Multiple skin eschars/excoriations: Likely secondary to patient picking, scratching (scratching during exam, although denied itch), largely neurogenic. -Discussed with nursing. All of her lesions will need to be dressed to avoid scratching, and allow them to heal. CAD/HTN: -Resume Coreg 3.125mg BID. Continue to hold Cozaar, HCTZ and Lasix. -continue on Plavix -Clonidine 0.1mg prn with parameters -irregular rhythm on exam, obtain EKG Dehydration, with Borderline BRAEDEN: Cr 1.3, increased from baseline creatinine 0.9. -Likely secondary to dehydration -treated with IV hydration. -Resolved -Encourage oral intake. Diabetes mellitus with Hyperglycemia: Glucose 217 on admission. -Continue patient's home lantus 16u sq ac qd. Resume Metformin 500mg BID. -Continue insulin sliding scale and diabetic diet. -Continue to monitor. Hypothyroidism -Continue on home dose of Synthroid -TSH level WNL DVT Prophylaxis: teds/SCDs Discussed with patient, nursing staff and Dr. Gamboa Discharge Planning Case management to assist with d/c planning, placement issue. Patient not safe discharge to [facility], requires closer supervision. Deedee Loving May 17, 2017 10:02
[2017-05-17 10:47] LABS: BACTERIA, URINE OCC /hpf; BLOOD, URINE NEG (NEG); COMMENT (UR) CULTURE INDICATED; CULTURE IF INDICATED CULTURE INDICATED; GLUCOSE,URINE NEG (NEG); KETONE, URINE 10 mg/dL (NEG); MUCUS URINE FEW /lpf (OCC); NITRITE,URINE NEG (NEG); PH, URINE 6.5 (5.0-8.5); SQUAMOUS EPITHELIAL CELL URINE 1 /hpf (0-5); URINE COLOR YELLOW (YELLW/STRAW)
[2017-05-17] MEDS ORDERED: CARVEDILOL 3.125 MG TAB PO ONE (11:30)
[2017-05-17 11:51] VITALS: BP 161/67; PULSE 74; RESP 24; TEMP 97.5; O2SAT 100
[2017-05-17 15:39] VITALS: BP 136/61; PULSE 83; RESP 22; TEMP 97.7; O2SAT 100
[2017-05-17] MEDS: cefTRIAXone INJ 1,000 MG in SODIUM CHLORIDE 0.9% INJ 100 ML IV SCH (17:00)
[2017-05-17] MEDS: CARVEDILOL 3.125 MG TAB PO SCH (21:55)
[2017-05-17] MEDS: DONEPEZIL HCL 5 MG TAB PO SCH (21:55)
[2017-05-17 21:59] VITALS: BP 180/72; PULSE 82; RESP 19; TEMP 97.5; O2SAT 100
[2017-05-18 00:51] VITALS: BP 154/68; PULSE 87; RESP 16; TEMP 97.9; O2SAT 100
[2017-05-18 05:28] VITALS: BP 153/70; PULSE 89; RESP 18; TEMP 97.8; O2SAT 100
[2017-05-18] MEDS: LEVOTHYROXINE SODIUM 50 MCG TAB PO SCH (06:41)
[2017-05-18] MEDS: SODIUM CHLOR 0.9% 1000 ML INJ 1,000 ML IV SCH (06:41)
[2017-05-18] MEDS ORDERED: INSULIN DETEMIR 100 UNITS/ML VIAL SQ SCH (07:00)
[2017-05-18 07:53] VITALS: BP 164/76; PULSE 83; RESP 20; TEMP 98.2; O2SAT 99
[2017-05-18] MEDS: DOCUSATE SODIUM 50 MG/SENNA 8.6 MG TAB PO SCH ×2 (08:42→21:42)
[2017-05-18] MEDS: INSULIN ASPART SUPPLEMENTAL SCALE SQ SCH ×4 (08:42→21:00)
[2017-05-18] MEDS: DORZOLAMIDE 2% OPTH SOLN 200 DROP/10 ML BTLO EACH EYE SCH ×2 (08:42→21:00)
[2017-05-18] MEDS: ATORVASTATIN 10 MG TAB PO SCH (08:43)
[2017-05-18] MEDS: CLOPIDOGREL 75 MG TAB PO SCH (08:44)
[2017-05-18] MEDS: metFORMIN HCL 500 MG TAB PO SCH ×2 (08:44→18:01)
[2017-05-18] MEDS: CARVEDILOL 3.125 MG TAB PO SCH ×2 (08:44→21:42)
[2017-05-18] MEDS: DULoxetine HCl DR 30 MG CAP PO SCH ×2 (08:45→21:42)
[2017-05-18 12:40] VITALS: BP 192/90; PULSE 71; RESP 18; TEMP 97.4; O2SAT 100
--- NOTE | 2017-05-18 13:35 | HHI.PR ---
Subjective Remarks Follow up for dementia, recurrent falls. The patient reports feeling much better today and she wants to go home. She has been ambulating the hallway with her walker without any difficulty. She states she is eating and drinking well. Denies any headache, lightheadedness, dizziness, chest pain, palpitations, or shortness of breath. She has no medical complaints to report at this time. Objective Vitals Vital Signs Date Time Temp Pulse Resp B/P (MAP) Pulse Ox O2 Delivery O2 Flow Rate FiO2 05/18/17 12:40 97.4 71 18 192/90 (124) 100 05/18/17 07:53 98.2 83 20 164/76 (105) 99 05/18/17 05:28 97.8 89 18 153/70 (97) 100 05/18/17 00:51 97.9 87 16 154/68 (96) 100 05/17/17 21:59 97.5 82 19 180/72 (108) 100 05/17/17 15:39 97.7 83 22 136/61 (86) 100 I/O 05/17/17 05/17/17 05/17/17 05/18/17 05/18/17 05/18/17 07:00 15:00 23:00 07:00 15:00 23:00 Intake Total 1100 ml 200 ml Output Total 350 ml 300 ml Balance -350 ml -300 ml 1100 ml 200 ml Intake Oral 200 ml IV Total 1100 ml Output Urine Total 350 ml 300 ml # Voids 1 5 # Bowel Movements 1 1 Result Diagram: 05/14/17 1345 05/16/17 0524 Imaging Last Impressions Upper Extremity Ultrasound 05/16/17 0000 Signed Impressions: Service Date/Time: May 16:05 - CONCLUSION: 1. No sonographic evidence for left upper extremity DVT. Sb Ndiaye MD Pelvis X-Ray 05/13/17 9959 Signed Impressions: Service Date/Time: Saturday, May 13, 2017 14:49 - CONCLUSION: Negative for fracture or dislocation. Follow up in 7-10 days is suggested if symptoms persist. Byron Muro MD FACR Lumbar Spine CT 05/13/17 1403 Signed Impressions: Service Date/Time: Saturday, May 13, 2017 14:44 - CONCLUSION: 1. Moderate spinal stenosis and severe bilateral foraminal narrowing at L4-5. 2. Mild to moderate spinal stenosis and moderate bilateral foraminal narrowing at L3-4. 3. Mild spinal stenosis and moderate bilateral foraminal narrowing at L5-S1. 4. Mild spinal stenosis and bilateral foraminal narrowing at L2-3. 5. No acute fracture or spondylolysis. 6. Grade I anterolisthesis of L4 in relation to L5. 7. Diffuse degenerative changes and mild scoliosis of the lumbar spine. 8. 2.8 x 1.4 cm fat-containing left adrenal nodule consistent with possible myelolipoma. 9. 2 cm right renal cyst. Garett Roe MD Head CT 05/13/171403 Signed Impressions: Service Date/Time: Saturday, May 13, 2017 14:37 - CONCLUSION: Negative for an acute process. Byron Muro MD FACR Chest X-Ray 05/13/171403 Signed Impressions: Service Date/Time: Saturday, May 13, 2017 14:48 - CONCLUSION: Negative for an acute process. I don't see fracture. Uppermost sternal wire is fractured. Byron Muro MD FACR Cervical Spine CT 05/13/171403 Signed Impressions: Service Date/Time: Saturday, May 13, 2017 14:41 - CONCLUSION: Negative for fracture dislocation. No interval change from 05/10/17. Byron Muro MD FACR Objective Remarks GENERAL: Well-nourished, well-developed pleasant elderly female patient in [facility]. SKIN: Warm and dry. Superficial healing excoriations throughout extremities and chest. HEENT: Normocephalic. Right periorbital ecchymosis. Pupils equal and round. Mucous membranes pink and moist. NECK: Supple. Trachea midline. CARDIOVASCULAR: Regular rate and rhythm. S1, S2 noted. No murmur appreciated. RESPIRATORY: No accessory muscle use. Clear to auscultation. Breath sounds equal bilaterally. GASTROINTESTINAL: Abdomen soft, non-tender, nondistended. Normoactive bowel sounds x4. MUSCULOSKELETAL: No obvious deformities. Extremities without clubbing, cyanosis , or edema. NEUROLOGICAL: Awake and alert. No obvious cranial nerve deficits. Motor grossly within normal limits. 5/5 muscle strength in bilateral upper and lower extremities. Normal speech. PSYCHIATRIC: Appropriate mood and affect; insight and judgment fair. Medications and IVs Current Medications Medications (Trade) Dose Ordered Sig/Roman Route Start Time Stop Time Status Last Admin (Glucophage) 500 mg BIDPC PO 05/17/17 09:00 05/18/17 08:44 Ceftriaxone Sodium 1000 mg/ Sodium Chloride 100 ml @ 200 mls/hr Q24H IV 05/17/17 17:00 05/17/17 17:00 Sodium Chloride 1,000 ml @ 42 mls/hr [id number] IV 05/17/17 08:00 05/18/17 06:41 (Nidia-Colace) 1 tab BID PO 05/17/17 09:00 05/18/17 08:42 (Lipitor) 10 mg DAILY PO 05/17/17 09:00 05/18/17 08:43 (Aricept) 10 mg HS PO 05/17/17 21:00 05/17/17 21:55 (Plavix) 75 mg DAILY PO 05/17/17 09:00 05/18/17 08:44 (Trusopt 2% Opth Soln) 1 drop BID EACH EYE 05/17/17 09:00 05/18/17 08:42 (Cymbalta Dr) 30 mg BID PO 05/17/17 09:00 05/18/17 08:45 (D50w (Vial) Inj) 50 ml UNSCH PRN IV PUSH 05/17/17 08:00 (Glucagon Inj) 1 mg UNSCH PRN OTHER 05/17/17 08:00 (NovoLOG SUPPLEMENTAL SCALE) 1 ACHS SLIDING SCALE SQ 05/17/17 08:00 05/18/17 12:00 (Tylenol) 650 mg Q4H PRN PO 05/17/17 08:00 (Zofran Inj) 4 mg Q8HR PRN IV PUSH 05/17/17 08:00 (Synthroid) 50 mcg DAILY@0600 PO 05/18/17 06:00 05/18/17 06:41 (Levemir Inj) 16 units AC BREAKFAST SQ 05/18/17 07:00 05/18/17 07:00 (Coreg) 3.125 mg Q12HR PO 05/17/17 21:00 05/18/17 08:44 A/P Problem List: (1) Frequent falls ICD Code: R29.6 - Repeated falls (2) Closed head injury ICD Code: S09.90XA - Unspecified injury of head, initial encounter (3) Hyperglycemia ICD Code: R73.9 - Hyperglycemia, unspecified Status: Acute (4) Dehydration ICD Code: E86.0 - Dehydration Status: Acute Assessment and Plan NOT [id number] female with history of dementia, HTN, CAD, DM, arthritis , presents from [facility] after recurrent falls Mechanical Fall, Lumbar Contusion, Closed Head Injury: suspect combination of dementia with orthostatic hypotension and arthritis. -Head CT images reviewed, no acute findings -C-spine CT shows multilevel degenerative changes without fracture or dislocations -L-spine CT reviewed, shows moderate stenosis and severe bilateral foraminal narrowing at L4-5; mild to mod stenosis and mod bilateral foraminal narrowing L3 -4; mild stenosis and mod bilateral foraminal narrowing at L5-S1 -Orthostatics positive, apply lesly hose, counseled on slow transitions but patient does not appear to comprehend concern for falls/instructions on transitioning, wearing LESLY hose, etc. -Hold patient's Zanaflex, Gabapentin and Tramadol -Continue daily PT -patient would benefit from SNF however unable to arrange, patient's ambulation is improving with PT, can likely return to [facility] with [facility] PT, case management assisting with discharge plans Possible UTI: UA with large leuks and WBCs, patient asymptomatic -continue empiric rocephin for now -await urine culture results and adjust treatment if needed LUE edema - Doppler US negative for any DVT Orthostatic hypotension -improved after holding all BP meds. -counseled on slow transitions but patient does not appear to comprehend concern for falls/instructions on transitioning, wearing LESLY hose, etc. -monitor BP closely -continue LESLY hose Severe dementia: patient oriented to self only. Unable to provide meaningful history. -Head CT unremarkable as above -Continue home dementia medications Spinal Stenosis: CT lumbar spine with moderate bilateral foraminal narrowing L4- L5, moderate spinal stenosis, other findings as above. -Patient is poor candidate for any kind of surgery owing to severe dementia, poor candidate for any increase in anticoagulation due to multiple ecchymosis, risk of falls. -continue with PT/OT -Kpad prn back pain Hypokalemia - repleted - mag level borderline low. Given Mag Ox 400mg po once. - monitor labs, replace electrolytes as needed Incidental finding of possible myolipoma on imaging: -Follow-up as outpatient. Multiple skin eschars/excoriations: Likely secondary to patient picking, scratching (scratching during exam, although denied itch), largely neurogenic. -Discussed with nursing. All of her lesions will need to be dressed to avoid scratching, and allow them to heal. CAD/HTN: -Resume Coreg 3.125mg BID. Continue to hold Cozaar, HCTZ and Lasix. -continue on Plavix -Clonidine 0.1mg prn with parameters Dehydration, with Borderline BRAEDEN: Cr 1.3, increased from baseline creatinine 0.9. -treated with IVF hydration. -Resolved -Encourage oral intake. Diabetes mellitus with Hyperglycemia: Glucose 217 on admission. -Continue patient's home lantus 16u sq ac qd. Resume Metformin 500mg BID. -Continue insulin sliding scale and diabetic diet. -Continue to monitor. -BG labile, well controlled last night at 132 however increased to 374 today , will increase lantus to 18u sq qd Hypothyroidism -Continue on home dose of Synthroid -TSH level wnl DVT Prophylaxis: teds/SCDs Discharge Planning Patient can likely return to [facility] with [facility] PT. Her ambulation has improved throughout admission, now ambulating the halls with a walker, with minimal assistance. Case management to assist with discharge planning. Laverne Burns PA-C May 18, 2017 1:35 pm
[2017-05-18 15:23] VITALS: BP 186/76; PULSE 69; RESP 18; TEMP 98; O2SAT 100
[2017-05-18] MEDS: cefTRIAXone INJ 1,000 MG in SODIUM CHLORIDE 0.9% INJ 100 ML IV SCH (17:00)
[2017-05-18 19:06] LABS: BICARBONATE 28.5 MEQ/L (21.0-32.0); MAGNESIUM 1.7 MG/DL (1.5-2.5)
[2017-05-18 19:07] LABS: POTASSIUM 3.7 MEQ/L (3.5-5.1)
[2017-05-18 19:23] VITALS: BP_SYST 142; BP_SYST 150; BP_SYST 162; BP_DIAS 59; BP_DIAS 73; BP_DIAS 98; PULSE 72; RESP 17; TEMP 98.4; O2SAT 99
[2017-05-18] MEDS: DONEPEZIL HCL 5 MG TAB PO SCH (21:42)
[2017-05-19 04:52] VITALS: BP 175/77; PULSE 73; RESP 16; TEMP 98.1; O2SAT 99
[2017-05-19] MEDS: SODIUM CHLOR 0.9% 1000 ML INJ 1,000 ML IV SCH (05:09)
[2017-05-19] MEDS: LEVOTHYROXINE SODIUM 50 MCG TAB PO SCH (06:25)
[2017-05-19 08:46] VITALS: BP_SYST 151; BP_SYST 172; BP_DIAS 73; BP_DIAS 80; PULSE 77; RESP 20; TEMP 96.8; O2SAT 96
[2017-05-19] MEDS: INSULIN ASPART SUPPLEMENTAL SCALE SQ SCH ×4 (08:50→21:00)
[2017-05-19] MEDS: INSULIN DETEMIR 100 UNITS/ML VIAL SQ SCH (08:50)
[2017-05-19] MEDS: ATORVASTATIN 10 MG TAB PO SCH (08:51)
[2017-05-19] MEDS: CLOPIDOGREL 75 MG TAB PO SCH (08:51)
[2017-05-19] MEDS: CARVEDILOL 3.125 MG TAB PO SCH ×2 (08:51→21:54)
[2017-05-19] MEDS: DULoxetine HCl DR 30 MG CAP PO SCH ×2 (08:51→21:54)
[2017-05-19] MEDS: DORZOLAMIDE 2% OPTH SOLN 200 DROP/10 ML BTLO EACH EYE SCH ×2 (08:52→21:54)
[2017-05-19] MEDS: metFORMIN HCL 500 MG TAB PO SCH ×2 (08:52→18:04)
[2017-05-19] MEDS: DOCUSATE SODIUM 50 MG/SENNA 8.6 MG TAB PO SCH ×2 (08:52→21:54)
--- NOTE | 2017-05-19 09:55 | HHI.PR ---
Subjective Remarks Follow up for dementia, recurrent falls. The patient really wants to go home. She states she is doing fine. She has no specific medical complaints. Denies any weakness. She has been ambulating the halls with her walker. Denies any fevers/chills, cough, abdominal pain, or urinary complaints. Objective Vitals Vital Signs Date Time Temp Pulse Resp B/P (MAP) Pulse Ox O2 Delivery O2 Flow Rate FiO2 05/19/17 08:46 96.8 77 20 151/73 (99) 96 137/60 (85) 172/80 (110) 05/19/17 04:52 98.1 73 16 175/77 (109) 99 05/18/17 19:23 98.4 72 17 162/73 (102) 99 150/98 (115) 142/59 (86) 05/18/17 15:23 98.0 69 18 186/76 (112) 100 05/18/17 12:40 97.4 71 18 192/90 (124) 100 I/O 05/18/17 05/18/17 05/18/17 05/19/17 05/19/17 05/19/17 07:00 15:00 23:00 07:00 15:00 23:00 Intake Total 200 ml 100 ml Balance 200 ml 100 ml Intake Oral 200 ml IV Total 100 ml # Voids 5 3 # Bowel Movements 3 Result Diagram: 05/18/17 1815 Imaging Last Impressions Upper Extremity Ultrasound 05/16/17 0000 Signed Impressions: Service Date/Time: May 16:05 - CONCLUSION: 1. No sonographic evidence for left upper extremity DVT. Sb Ndiaye MD Pelvis X-Ray 05/13/17 [id number] Signed Impressions: Service Date/Time: Saturday, May 13, 2017 14:49 - CONCLUSION: Negative for fracture or dislocation. Follow up in 7-10 days is suggested if symptoms persist. Byron Muro MD FACR Lumbar Spine CT 05/13/17 [id number] Signed Impressions: Service Date/Time: Saturday, May 13, 2017 14:44 - CONCLUSION: 1. Moderate spinal stenosis and severe bilateral foraminal narrowing at L4-5. 2. Mild to moderate spinal stenosis and moderate bilateral foraminal narrowing at L3-4. 3. Mild spinal stenosis and moderate bilateral foraminal narrowing at L5-S1. 4. Mild spinal stenosis and bilateral foraminal narrowing at L2-3. 5. No acute fracture or spondylolysis. 6. Grade I anterolisthesis of L4 in relation to L5. 7. Diffuse degenerative changes and mild scoliosis of the lumbar spine. 8. 2.8 x 1.4 cm fat-containing left adrenal nodule consistent with possible myelolipoma. 9. 2 cm right renal cyst. Garett Roe MD Head CT 05/13/171403 Signed Impressions: Service Date/Time: Saturday, May 13, 2017 14:37 - CONCLUSION: Negative for an acute process. Byron Muro MD FACR Chest X-Ray 05/13/171403 Signed Impressions: Service Date/Time: Saturday, May 13, 2017 14:48 - CONCLUSION: Negative for an acute process. I don't see fracture. Uppermost sternal wire is fractured. Byron Muro MD FACR Cervical Spine CT 05/13/171403 Signed Impressions: Service Date/Time: Saturday, May 13, 2017 14:41 - CONCLUSION: Negative for fracture dislocation. No interval change from 05/10/17. Byron Muro MD FACR Objective Remarks GENERAL: Well-nourished, well-developed pleasant elderly female patient in [facility]. SKIN: Warm and dry. Superficial healing excoriations throughout extremities and chest. HEENT: Normocephalic. Right periorbital ecchymosis, improving. Pupils equal and round. Mucous membranes pink and moist. CARDIOVASCULAR: Regular rate and rhythm. S1, S2 noted. No murmur appreciated. RESPIRATORY: No accessory muscle use. Clear to auscultation. Breath sounds equal bilaterally. GASTROINTESTINAL: Abdomen soft, non-tender, nondistended. Normoactive bowel sounds x4. MUSCULOSKELETAL: No obvious deformities. Extremities without clubbing, cyanosis , or edema. NEUROLOGICAL: Awake and alert. No obvious cranial nerve deficits. Motor grossly within normal limits. 5/5 muscle strength in bilateral upper and lower extremities. Normal speech. PSYCHIATRIC: Appropriate mood and affect; insight and judgment fair. Medications and IVs Current Medications Medications (Trade) Dose Ordered Sig/Roman Route Start Time Stop Time Status Last Admin (Glucophage) 500 mg BIDPC PO 05/17/17 09:00 05/19/17 08:52 Ceftriaxone Sodium 1000 mg/ Sodium Chloride 100 ml @ 200 mls/hr Q24H IV 05/17/17 17:00 05/18/17 17:00 Sodium Chloride 1,000 ml @ 42 mls/hr [id number] IV 05/17/17 08:00 05/19/17 05:09 (Nidia-Colace) 1 tab BID PO 05/17/17 09:00 05/18/17 21:42 (Lipitor) 10 mg DAILY PO 05/17/17 09:00 05/19/17 08:51 (Aricept) 10 mg HS PO 05/17/17 21:00 05/18/17 21:42 (Plavix) 75 mg DAILY PO 05/17/17 09:00 05/19/17 08:51 (Trusopt 2% Opth Soln) 1 drop BID EACH EYE 05/17/17 09:00 05/19/17 08:52 (Cymbalta Dr) 30 mg BID PO 05/17/17 09:00 05/19/17 08:51 (D50w (Vial) Inj) 50 ml UNSCH PRN IV PUSH 05/17/17 08:00 (Glucagon Inj) 1 mg UNSCH PRN OTHER 05/17/17 08:00 (NovoLOG SUPPLEMENTAL SCALE) 1 ACHS SLIDING SCALE SQ 05/17/17 08:00 05/19/17 08:50 (Tylenol) 650 mg Q4H PRN PO 05/17/17 08:00 (Zofran Inj) 4 mg Q8HR PRN IV PUSH 05/17/17 08:00 (Synthroid) 50 mcg DAILY@0600 PO 05/18/17 06:00 05/19/17 06:25 (Coreg) 3.125 mg Q12HR PO 05/17/17 21:00 05/19/17 08:51 (Levemir Inj) 18 units AC BREAKFAST SQ 05/19/17 07:00 05/19/17 08:50 A/P Problem List: (1) Frequent falls ICD Code: R29.6 - Repeated falls (2) Closed head injury ICD Code: S09.90XA - Unspecified injury of head, initial encounter (3) Hyperglycemia ICD Code: R73.9 - Hyperglycemia, unspecified Status: Acute (4) Dehydration ICD Code: E86.0 - Dehydration Status: Acute Assessment and Plan 87-year-old female with history of dementia, HTN, CAD, DM, arthritis, presents from [facility] after recurrent falls Mechanical Fall, Lumbar Contusion, Closed Head Injury: suspect combination of dementia with orthostatic hypotension and arthritis. -Head CT images reviewed, no acute findings -C-spine CT shows multilevel degenerative changes without fracture or dislocations -L-spine CT reviewed, shows moderate stenosis and severe bilateral foraminal narrowing at L4-5; mild to mod stenosis and mod bilateral foraminal narrowing L3 -4; mild stenosis and mod bilateral foraminal narrowing at L5-S1 -Orthostatics positive, apply lesly hose, counseled on slow transitions but patient does not appear to comprehend concern for falls/instructions on transitioning, wearing LESLY hose, etc. -Hold patient's Zanaflex, Gabapentin and Tramadol -Continue daily PT -patient would benefit from SNF however unable to arrange, patient's ambulation is improving with PT, can likely return to [facility] with [facility] PT, case management assisting with discharge plans Possible UTI: UA with large leuks and WBCs, patient asymptomatic -given empiric treatment with IV rocephin -urine culture with yeast, will discontinue antibiotics LUE edema - Doppler US negative for any DVT Orthostatic hypotension -improved after holding BP meds. -counseled on slow transitions but patient does not appear to comprehend concern for falls/instructions on transitioning, wearing LESLY hose, etc. -monitor BP closely -continue LESLY hose Severe dementia: patient oriented to self only. Unable to provide meaningful history. -Head CT unremarkable as above -Continue home dementia medications Spinal Stenosis: CT lumbar spine with moderate bilateral foraminal narrowing L4- L5, moderate spinal stenosis, other findings as above. -Patient is poor candidate for any kind of surgery owing to severe dementia, poor candidate for any increase in anticoagulation due to multiple ecchymosis, risk of falls. -continue with PT/OT -Kpad prn back pain Hypokalemia - repleted - mag level borderline low. Given Mag Ox 400mg po once. - monitor labs, replace electrolytes as needed Incidental finding of possible myolipoma on imaging: -Follow-up as outpatient. Multiple skin eschars/excoriations: Likely secondary to patient picking, scratching (scratching during exam, although denied itch), largely neurogenic. -Discussed with nursing. All of her lesions will need to be dressed to avoid scratching, and allow them to heal. CAD/HTN: -Resume Coreg 3.125mg BID. -Due to orthostatic hypotension, initially held Cozaar, HCTZ and Lasix. -With elevated BP, will restart low dose Cozaar 25mg daily -continue on Plavix -Clonidine 0.1mg prn with parameters -Monitor BP, adjust antihypertensives as needed Dehydration, with Borderline BRAEDEN: Cr 1.3, increased from baseline creatinine 0.9. -treated with IVF hydration. -Resolved -Encourage oral intake. Diabetes mellitus with Hyperglycemia: Glucose 217 on admission. -Continue patient's home lantus 16u sq ac qd. Resume Metformin 500mg BID. -Continue insulin sliding scale and diabetic diet. -Continue to monitor. -BG labile, well controlled from 132 to 374, increased lantus to 18u sq qd Hypothyroidism -Continue on home dose of Synthroid -TSH level wnl DVT Prophylaxis: teds/SCDs Discharge Planning Patient can likely return to [facility] with [facility] PT. Her ambulation has improved throughout admission, now ambulating the halls with a walker, with minimal assistance. Case management to assist with discharge planning. Laverne Burns PA-C May 19, 2017 9:55 am
[2017-05-19 12:08] VITALS: BP 150/70; PULSE 78; RESP 20; TEMP 96.8; O2SAT 95
[2017-05-19] MEDS: LOSARTAN 25 MG TAB PO SCH (13:03)
[2017-05-19 16:00] VITALS: BP 155/67; PULSE 78; RESP 16; TEMP 98.3; O2SAT 98
[2017-05-19 19:41] VITALS: BP 148/67; PULSE 74; RESP 18; TEMP 98.3; O2SAT 99
[2017-05-19] MEDS: DONEPEZIL HCL 5 MG TAB PO SCH (21:54)
[2017-05-19 23:23] VITALS: BP 178/75; PULSE 75; RESP 18; TEMP 98.3; O2SAT 96
[2017-05-20 03:38] VITALS: BP 177/76; PULSE 79; RESP 18; TEMP 98.3; O2SAT 100
[2017-05-20] MEDS: LEVOTHYROXINE SODIUM 50 MCG TAB PO SCH (05:28)
[2017-05-20] MEDS: INSULIN DETEMIR 100 UNITS/ML VIAL SQ SCH (06:20)
[2017-05-20 07:27] VITALS: BP 186/76; PULSE 78; RESP 18; TEMP 96; O2SAT 99
[2017-05-20] MEDS: INSULIN ASPART SUPPLEMENTAL SCALE SQ SCH (08:00)
[2017-05-20] MEDS: DOCUSATE SODIUM 50 MG/SENNA 8.6 MG TAB PO SCH (08:09)
[2017-05-20] MEDS: ATORVASTATIN 10 MG TAB PO SCH (08:09)
[2017-05-20] MEDS: metFORMIN HCL 500 MG TAB PO SCH (08:09)
[2017-05-20] MEDS: DULoxetine HCl DR 30 MG CAP PO SCH (08:09)
[2017-05-20] MEDS: CARVEDILOL 3.125 MG TAB PO SCH (08:09)
[2017-05-20] MEDS: LOSARTAN 25 MG TAB PO SCH (08:09)
[2017-05-20] MEDS: CLOPIDOGREL 75 MG TAB PO SCH (08:10)
[2017-05-20] MEDS: DORZOLAMIDE 2% OPTH SOLN 200 DROP/10 ML BTLO EACH EYE SCH (08:11)
[2017-05-20] MEDS ORDERED: COZA50TA PO (08:39)
[2017-05-20] MEDS ORDERED: LEVEMIR SQ (08:39)
--- NOTE | 2017-05-20 08:40 | HHI.DS ---
Discharge Summary Admission Date May 13, 2017 at 5:07 pm Discharge Date: May 20, 2017 Admitting Diagnosis mechanical fall, dehydration, questionable arrythmia (1) Frequent falls ICD Code: R29.6 - Repeated falls (2) Closed head injury ICD Code: S09.90XA - Unspecified injury of head, initial encounter (3) Hyperglycemia ICD Code: R73.9 - Hyperglycemia, unspecified Status: Acute (4) Dehydration ICD Code: E86.0 - Dehydration Status: Acute Procedures None. Brief History - From Admission 87 y/o female with a history of dementia and HTn presented to the ED after a fall at the nursing facility. She is only oriented to self. Ros and history taken is limited. Patient states yes periodically to question but can not elaborated. Per RN she has been scratching on her chest and abdomen a lot and patient confirms this. She says she is scratching but denies itching. Nursing reports that patient has transferred without much difficulty. CBC/BMP: 05/18/17 1815 Significant Findings Laboratory Tests Test 05/18/17 18:15 Random Glucose 181 MG/DL (74-106) Estimat Glomerular Filtration Rate 83 ML/MIN (>89) Imaging Last Impressions Upper Extremity Ultrasound 05/16/17 0000 Signed Impressions: Service Date/Time: May 16:05 - CONCLUSION: 1. No sonographic evidence for left upper extremity DVT. Sb Ndiaye MD Pelvis X-Ray 05/13/17 0183 Signed Impressions: Service Date/Time: Saturday, May 13, 2017 14:49 - CONCLUSION: Negative for fracture or dislocation. Follow up in 7-10 days is suggested if symptoms persist. Byron Muro MD FACR Lumbar Spine CT 05/13/17 1575 Signed Impressions: Service Date/Time: Saturday, May 13, 2017 14:44 - CONCLUSION: 1. Moderate spinal stenosis and severe bilateral foraminal narrowing at L4-5. 2. Mild to moderate spinal stenosis and moderate bilateral foraminal narrowing at L3-4. 3. Mild spinal stenosis and moderate bilateral foraminal narrowing at L5-S1. 4. Mild spinal stenosis and bilateral foraminal narrowing at L2-3. 5. No acute fracture or spondylolysis. 6. Grade I anterolisthesis of L4 in relation to L5. 7. Diffuse degenerative changes and mild scoliosis of the lumbar spine. 8. 2.8 x 1.4 cm fat-containing left adrenal nodule consistent with possible myelolipoma. 9. 2 cm right renal cyst. Garett Roe MD Head CT 05/13/171403 Signed Impressions: Service Date/Time: Saturday, May 13, 2017 14:37 - CONCLUSION: Negative for an acute process. Byron Muro MD FACR Chest X-Ray 05/13/171403 Signed Impressions: Service Date/Time: Saturday, May 13, 2017 14:48 - CONCLUSION: Negative for an acute process. I don't see fracture. Uppermost sternal wire is fractured. Byron Muro MD FACR Cervical Spine CT 05/13/171403 Signed Impressions: Service Date/Time: Saturday, May 13, 2017 14:41 - CONCLUSION: Negative for fracture dislocation. No interval change from 05/10/17. Byron Muro MD FACR PE at Discharge GENERAL: Well-nourished, well-developed pleasant elderly female patient in [facility]. SKIN: Warm and dry. Superficial healing excoriations throughout extremities and chest. HEENT: Normocephalic. Right periorbital ecchymosis, improving. Pupils equal and round. Mucous membranes pink and moist. CARDIOVASCULAR: Regular rate and rhythm. S1, S2 noted. No murmur appreciated. RESPIRATORY: No accessory muscle use. Clear to auscultation. Breath sounds equal bilaterally. GASTROINTESTINAL: Abdomen soft, non-tender, nondistended. Normoactive bowel sounds x4. MUSCULOSKELETAL: No obvious deformities. Extremities without clubbing, cyanosis , or edema. NEUROLOGICAL: Awake and alert. No obvious cranial nerve deficits. Motor grossly within normal limits. 5/5 muscle strength in bilateral upper and lower extremities. Normal speech. PSYCHIATRIC: Appropriate mood and affect; insight and judgment fair to limited. Pt update on day of discharge Follow up dementia, recurrent falls. The patient reports feeling well today. She is hungry, requesting breakfast. She wants to go home. She denies any headache, lightheadedness, dizziness, chest pain, palpitations, shortness of breath, abdominal or urinary complaints. Hospital Course 87-year-old female with history of dementia, HTN, CAD, DM, arthritis, presents from [facility] after recurrent falls The patient was admitted with Mechanical Fall, Lumbar Contusion, Closed Head Injury. Multiple recurrent falls were reported from the [facility]. Suspect combination of dementia with orthostatic hypotension and arthritis. Imaging work up mostly unremarkable. Head CT images reviewed, no acute findings. C- spine CT shows multilevel degenerative changes without fracture or dislocations. L-spine CT reviewed, shows moderate stenosis and severe bilateral foraminal narrowing at L4-5; mild to mod stenosis and mod bilateral foraminal narrowing L3-4; mild stenosis and mod bilateral foraminal narrowing at L5-S1. Orthostatics positive, applied lesly hose, counseled on slow transitions but patient does not appear to comprehend concern for falls/instructions on transitioning, wearing LESLY hose, etc. Discontinued patient's Zanaflex, Gabapentin and Tramadol. Continued daily PT, patient improved throughout 7 day admission and was ambulating the hallway with her walker without any assistance. Attempted to arrange SNF however was unable, and patient's ambulation much improved with PT, therefore she was discharged back to her [facility] with [facility] PT. Further medical problems throughout admission listed below: Possible UTI: UA with large leuks and WBCs, patient was asymptomatic. Initially given empiric treatment with IV rocephin. Urine culture with yeast only, discontinued antibiotics. LUE edema- Doppler US negative for any DVT. Edema improved. Orthostatic hypotension: much improved after holding BP meds. Counseled on slow transitions, wearing LESLY hose, etc. Severe dementia: patient oriented to self only. Unable to provide meaningful history. Head CT unremarkable as above. Continued home dementia medications Spinal Stenosis: CT lumbar spine with moderate bilateral foraminal narrowing L4- L5, moderate spinal stenosis, other findings as above. Patient is poor candidate for any kind of surgery owing to severe dementia, poor candidate for any increase in anticoagulation due to multiple ecchymosis, risk of falls. Continue with PT. Incidental finding of possible myolipoma on imaging: Follow-up as outpatient. Multiple skin eschars/excoriations: Likely secondary to patient picking, scratching (scratching during exam, although denied itch), largely neurogenic. Discussed with nursing. All of her lesions will need to be dressed to avoid scratching, and allow them to heal. Improved throughout admission CAD/HTN: Resumed Coreg 3.125mg BID. Due to orthostatic hypotension, initially discontinued Cozaar, HCTZ and Lasix; however with elevated BP, restarted low dose Cozaar 50mg daily. Continued on Plavix. Dehydration, with Borderline BRAEDEN: Cr 1.3, increased from baseline creatinine 0.9. Treated with IVF hydration. Resolved. Encourage oral intake. Diabetes mellitus with Hyperglycemia: Glucose 217 on admission. Continue patient 's home lantus 16u sq ac qd, increased to 18u. Resumed Metformin 500mg BID. BG improved. Hypothyroidism: Continue on home dose of Synthroid. TSH level wnl. Pt Condition on Discharge: Stable Discharge Disposition: [facility] with [facility] Discharge Time: > 30 minutes Discharge Instructions DIET: Follow Instructions for: Heart Healthy Diet, Diabetic Diet Activities you can perform: Regular-No Restrictions Follow up Referrals: PCP Follow-up - 3-5 Days New Medications: Losartan (Cozaar) 50 Mg Tab 50 MG PO DAILY for Blood Pressure Management, #30 TAB 0 Refills Walker with Front Wheels (Walker with Front Wheels) 1 Mis Mis EA .ROUTE DIRECTED, #1 0 Refills Insulin Detemir Inj (Levemir Inj) 1,000 unit/ 10 ML Vial 18 UNITS SQ AC BREAKFAST for Blood Sugar Management, #30 INJECTION Do not mix with any other Insulin. Continued Medications: Acetaminophen (Tylenol Extra Strength) 500 Mg Tablet 1000 MG PO Q4HR PRN for PAIN SCALE 1 TO 10 Atorvastatin (Atorvastatin) 10 Mg Tab 10 MG PO HS for Cholesterol Management, #30 TAB 0 Refills Carvedilol (Carvedilol) 3.125 Mg Tab 3.125 MG PO BID, #60 TAB 0 Refills Clopidogrel (Plavix) 75 Mg Tab 75 MG PO DAILY for Blood Clot Prevention, #30 TAB 0 Refills Donepezil (Donepezil) 10 Mg Tab 10 MG PO HS for Dementia, #30 TAB 0 Refills Dorzolamide Opth Drops (Dorzolamide Opth Drops) 2% Soln 1 DROP EACH EYE BID for Glaucoma, #1 BOTTLE [address] (Duloxetine DR) 30 Mg Capdr 30 MG PO BID, #30 CAP 0 Refills Levothyroxine (Levothyroxine) 50 Mcg Tab 50 MCG PO DAILY for Thyroid, #30 TAB 0 Refills Loperamide (Loperamide) 2 Mg Cap 2 MG PO DIRECTED PRN for DIARRHEA, CAP 0 Refills One capsule after each loose stool. Not to exceed 8 capsules per day. Meclizine (Meclizine) 25 Mg Tab 25 MG PO Q8HR PRN for VERTIGO, TAB 0 Refills Metformin (Metformin) 500 Mg Tab 1000 MG PO BIDPC for Blood Sugar Management, #60 TAB 0 Refills Triamcinolone Topical (Triamcinolone Topical) 0.025 % Oint 1 APPLIC TOPICAL TID for Inflammation, GM 0 Refills Discontinued Medications: Cephalexin (Cephalexin) 500 Mg Cap 500 MG PO Q6H for Infection, CAP 0 Refills Furosemide (Lasix) 20 Mg Tab 20 MG PO DAILY, #30 TAB 0 Refills Gabapentin (Gabapentin) 800 Mg Tab 800 MG PO TID, #90 TAB 0 Refills Insulin Glargine Inj (Lantus Inj) 1,000 Unit/10 Ml Vial 16 UNITS SQ AC BREAKFAST for Blood Sugar Management, VIAL 0 Refills Losartan-Hydrochlorothiazide (Losartan-Hydrochlorothiazide) 100-12.5 Mg Tab 1 TAB PO DAILY for Blood Pressure Management, #30 TAB 0 Refills Tizanidine (Zanaflex) 4 Mg Tab 4 MG PO TID for Muscle Spasm, TAB 0 Refills Tramadol (Tramadol) 50 Mg Tab 50 MG PO Q8H PRN for PAIN, TAB 0 Refills Laverne Burns PA-C May 20, 2017 8:40 am
[2017-05-20 12:02] VITALS: BP 132/75
== END 2017-05-20 17:03 ==
LOC: NEPC 13:46 → NEDA 17:07 → NEPHCDU 19:18 → UNDODISOB 05-16 18:45
PROVIDERS: ADMIT Hospitalist; ATTEND Hospitalist
DX: S30.0XXA Contusion of lower back and pelvis, initial encounter (principal); S09.90XA Unspecified injury of head, initial encounter; R51 Headache; E11.65 Type 2 diabetes mellitus with hyperglycemia; I25.10 Atherosclerotic heart disease of native coronary artery without angina pectoris; E86.0 Dehydration; R82.99 Other abnormal findings in urine; F03.90 Unspecified dementia, unspecified severity, without behavioral disturbance, psychotic disturbance, mood disturbance, and anxiety; R29.6 Repeated falls; M48.061 Spinal stenosis, lumbar region without neurogenic claudication; I95.1 Orthostatic hypotension; R60.0 Localized edema; E87.6 Hypokalemia; N17.9 Acute kidney failure, unspecified; M79.89 Other specified soft tissue disorders; E03.9 Hypothyroidism, unspecified; I10 Essential (primary) hypertension; Z91.81 History of falling; Z79.02 Long term (current) use of antithrombotics/antiplatelets; W18.30XA Fall on same level, unspecified, initial encounter; Y92.129 Unspecified place in nursing home as the place of occurrence of the external cause
CPT/HCPCS: 70450; 71010; 72125; 72131; 72170; 80048; 80053; 81001; 82948; 83735; 84100; 84132; 84443; 85025; 87086; 93005; 93971; 96361; 96365; 96366; 96372; 97110; 97116; 97162; 97166; 99285; G0378; G8987; G8988; J0696; J1815; J3480; J7030; J7040; P9612